=== PATIENT | female | born 1960 | race Caucasian/White ===

== ENCOUNTER 2017-03-15 14:08 | Emergency (ER) | payer OTHER ==
[2017-03-15 14:09] VITALS: BMI 32.9
[2017-03-15 14:25] VITALS: TEMP 97.6; O2SAT 100
[2017-03-15] MEDS ORDERED: Oxycodone/Acetaminophen 5/325 mg Tab PO STA (14:32)
[2017-03-15] MEDS ORDERED: Alum-Mag Hydrox-Simethicone Susp (30 mL) PO STA (14:32)
[2017-03-15] MEDS ORDERED: Lidocaine 5% Patch TD STA (14:33)
--- NOTE | 2017-03-15 14:37 | ED PDOC ---
Arrival/HPI - General Chief Complaint: Abdominal Pain Time Seen by Provider: 03/15/17 14:29 Historian: Patient - History of Present Illness Narrative History of Present Illness (Text): 03/15/17 14:34 56 y/o female, pmh including gerd/chronic lower back pain, nkda, post menopausal , c/o epigastric pain and lower back pain. Pt. stated that she has epigastric for over 1-2 years, recently had the endoscopy done and told she has gastritis with reflux esophogitis, on PPI now for the past 2 weeks and currently following up with the GI doctor. Pt. stated that she has chronic lt. lower back pain which told she has disc herniation which she is following with the neurologist, no numbness or tingling, no fever or chills, no urinary or bowel incontinence or retention, no chest pain or shortness of breath, no night sweat , no dizziness, no rash, no other medical or psychological complaints. Past Medical History - Provider Review Nursing Documentation Reviewed: Yes - Tetanus Immunization Tetanus Immunization: Unknown - Cardiac Hx Cardiac Disorders: No - Pulmonary Hx Respiratory Disorders: Yes Hx Asthma: Yes - Neurological Hx Neurological Disorder: No - HEENT Hx HEENT Disorder: No - Renal Hx Renal Disorder: No - Endocrine/Metabolic Hx Endocrine Disorders: No - Hematological/Oncological Hx Blood Disorders: No - Integumentary Hx Dermatological Disorder: No - Musculoskeletal/Rheumatological Hx Musculoskeletal Disorders: No - Gastrointestinal Hx Gastrointestinal Disorders: No - Genitourinary/Gynecological Hx Genitourinary Disorders: No - Psychiatric Hx Psychophysiologic Disorder: No Hx Substance Use: No - Surgical History Other/Comment: HX OF RIGHT CARPAL TUNNEL RELEASE, BOTH OVARY REMOVED, FIBROID REMOVED - Anesthesia Hx Anesthesia: Yes Hx Anesthesia Reactions: No Hx Malignant Hyperthermia: No - Suicidal Assessment Feels Threatened In Home Enviroment: No Family/Social History - Physician Review Nursing Documentation Reviewed: Yes Family/Social History: Unknown Family HX Smoking Status: Never Smoked Hx Alcohol Use: No Hx Substance Use: No Hx Substance Use Treatment: No Allergies/Home Meds Allergies/Adverse Reactions: Allergies No Known Allergies Allergy (Verified 07/25/14 20:30) per patient Home Medications: Home Meds Medication Instructions Recorded Confirmed Gabapentin [Neurontin] 300 mg PO HS 03/15/17 03/15/17 Pantoprazole [Protonix] 40 mg PO DAILY 03/15/17 03/15/17 Polyethylene Glycol 3350 [Glycolax] 17 gm PO DAILY 03/15/17 03/15/17 Review of Systems - Review of Systems Constitutional: absent: Fatigue, Fevers Eyes: absent: Vision Changes ENT: Sore Throat. absent: Hearing Changes Respiratory: absent: SOB, Cough Cardiovascular: absent: Chest Pain Gastrointestinal: Abdominal Pain. absent: Nausea, Vomiting Musculoskeletal: Back Pain. absent: Arthralgias, Neck Pain Skin: absent: Rash, Pruritis Neurological: absent: Headache, Dizziness Psychiatric: absent: Anxiety, Depression Physical Exam Vital Signs Reviewed: Yes Vital Signs Temp Pulse Resp BP Pulse Ox 03/15/17 16:41 65 18 138/79 100 03/15/17 15:39 63 18 142/89 100 03/15/17 14:24 97.6 F 61 16 144/94 H 100 Temperature: Afebrile Blood Pressure: Hypertensive Pulse: Regular Respiratory Rate: Normal Appearance: Positive for: Well-Appearing, Non-Toxic, Comfortable Pain Distress: Moderate Mental Status: Positive for: Alert and Oriented X 3 - Systems Exam Head: Present: Atraumatic, Normocephalic Pupils: Present: PERRL Extroacular Muscles: Present: EOMI Conjunctiva: Present: Normal Mouth: Present: Moist Mucous Membranes Neck: Present: Normal Range of Motion Respiratory/Chest: Present: Clear to Auscultation, Good Air Exchange. No: Respiratory Distress, Accessory Muscle Use Cardiovascular: Present: Regular Rate and Rhythm, Normal S1, S2. No: Murmurs Abdomen: Present: Tenderness (+epigastric tenderness, negative ge sign), Normal Bowel Sounds. No: Distention, Peritoneal Signs Back: Present: Normal Inspection, Other (LS spine: no midline tenderness or step off, no paraspinal muscle tenderness except mild spasm on the lt. lumbar paraspinal muscle, no rash, no cva tenderness, FROM without limitation, sensation intact, motor 5/5, no saddling gait. ). No: Midline Tenderness, Paraspinal Tenderness, Decubitus Ulcer Upper Extremity: Present: Normal Inspection. No: Cyanosis, Edema Lower Extremity: Present: Normal Inspection. No: Edema Neurological: Present: GCS=15, CN II-XII Intact, Speech Normal Skin: Present: Warm, Dry, Normal Color. No: Rashes Psychiatric: Present: Alert, Oriented x 3, Normal Insight, Normal Concentration Medical Decision Making ED Course and Treatment: 03/15/17 14:36 -labs -ekg/chest xray -GI cocktail/percocet/lidoderm -observe and reassess 03/15/17 17:10 -There is no emergent indication of radiology studies for the thoracic/lumbar region -EKG: Sinus Bradycardia @ 54 BPM, no ST elevation or depression, T wave in version on lead III. -Chest xray show no active disease -Labs are non-significant, negative troponin. -UA show no UTI. -I reviewed the [facility], pt. is not on any chronic narcotic pain med, will give 3 days of percocet for her for the pain since she's not a candidate for the NSAIDS with tylenol as limited relief. -Pt. request for cane, will order cane for her. -Discharge home with percocet, lidoderm patch, sucralfate, bed rest, stay hydrated, follow up with your own pmd and GI/neurologist within 2 days, return to the ER for any new or worsening signs or symptoms. - Lab Interpretations Lab Results: 03/15/17 15:30 03/15/17 15:30 Lab Results 03/15/17 15:30: Sodium 143, Potassium 4.2, Chloride 103, Carbon Dioxide 30, Anion Gap 14, BUN 8, Creatinine 0.6, Est GFR ( Amer) > 60, Est GFR (Non- Af Amer) > 60, Random Glucose 90, Calcium 10.3, Total Bilirubin 0.7, AST 21, ALT 30, Alkaline Phosphatase 85, Lactate Dehydrogenase 440, Total Creatine Kinase 43, Troponin I < 0.01, Total Protein 7.8, Albumin 4.2, Globulin 3.6, Albumin/Globulin Ratio 1.2, Lipase 78 03/15/17 15:30: WBC 4.3 L, RBC 4.83, Hgb 13.8, Hct 41.7, MCV 86.3, MCH 28.6, MCHC 33.1, RDW 13.2, Plt Count 299, MPV 9.2, Gran % 49.6 L, Lymph % (Auto) 37.3 H, [place] % (Auto) 9.3 H, Eos % (Auto) 3.3, Baso % (Auto) 0.5, Gran # 2.13, Lymph # 1.6, [place] # 0.4, Eos # 0.1, Baso # 0.02 03/15/17 14:55: Urine Color Yellow, Urine Appearance Clear, Urine pH 7.5, Ur Specific Raymond 1.015, Urine Protein Trace H, Urine Glucose (UA) Negative, Urine Ketones Negative, Urine Blood Negative, Urine Nitrate Negative, Urine Bilirubin Negative, Urine Urobilinogen 0.2, Ur Leukocyte Esterase Negative, Urine RBC 0 - 2, Urine WBC 0 - 2, Ur Epithelial Cells 0 - 2, Urine Bacteria Few I have reviewed the lab results: Yes Interpretation: No clinic. lab abnormalty - RAD Interpretation Radiology Orders: 03/15/17 14:32 CHEST PORTABLE [RAD] Stat no active disease Backend Developer: Radiologist - EKG Interpretation EKG Interpretation (Text): 03/15/17 15:01 EKG: Sinus Bradycardia @ 54 BPM, no ST elevation or depression, T wave in version on lead III. Interpreted by ED Physician: Yes Type: 12 lead EKG - Medication Orders Current Medication Orders: Discontinued Medications Al Hydrox/Mg Hydrox/Simethicone (Maalox Plus 30 Ml) 30 ml PO STAT STA Stop: 03/15/17 14:33 Last Admin: 03/15/17 15:06 Dose: 30 ml Dicyclomine HCl (Bentyl) 20 mg PO STAT STA Stop: 03/15/17 14:33 Last Admin: 03/15/17 15:06 Dose: 20 mg Lidocaine (Lidoderm) 1 ea TD STAT STA Stop: 03/15/17 14:34 Last Admin: 03/15/17 15:07 Dose: 1 ea Lidocaine HCl (Lidocaine 2% Viscous) 15 ml PO STAT STA Stop: 03/15/17 14:33 Last Admin: 03/15/17 15:07 Dose: 15 ml Oxycodone/Acetaminophen (Percocet 5/325 Mg Tab) 1 tab PO STAT STA Stop: 03/15/17 14:33 Last Admin: 03/15/17 15:06 Dose: 1 tab - PA / CUSHION WORKER / Resident Statement / has reviewed & agrees with the documentation as recorded. Disposition/Present on Arrival - Present on Arrival Any Indicators Present on Arrival: No History of DVT/PE: No History of Uncontrolled Diabetes: No Urinary Catheter: No History of Decub. Ulcer: No History Surgical Site Infection Following: None - Disposition Have Diagnosis and Disposition been Completed?: Yes Diagnosis: GERD (gastroesophageal reflux disease), Lumbar radiculopathy, chronic Disposition: HOME/ ROUTINE Disposition Time: 15:02 Patient Plan: Discharge Patient Problems: Current Active Problems Problem Status Onset GERD (gastroesophageal reflux disease) Acute Lumbar radiculopathy, chronic Acute Condition: IMPROVED Additional Instructions: Discharge home with percocet, lidoderm patch, sucralfate, bed rest, stay hydrated, follow up with your own pmd and GI/neurologist within 2 days, return to the ER for any new or worsening signs or symptoms. Prescriptions: Lidocaine 5% [Lidoderm] 1 patch TP DAILY PRN #14 patch PRN Reason: Other oxyCODONE/Acetaminophen [Percocet 5/325 mg Tab] 1 tab PO QID PRN #12 tab PRN Reason: Other Sucralfate [Carafate Oral Susp] 10 ml PO QID PRN #300 ml PRN Reason: Other Referrals: PCP,NO [Primary Care Provider] - Follow up with primary [facility] [place]] - Follow up with primary Francesco Feldman MD [Staff Provider] - Follow up with primary Forms: [employer] (Uzbek), WORK NOTE
[2017-03-15 15:09] LABS: PH,URINE 7.5 (4.7-8.0); URINE BILIRUBIN NEGATIVE (NEGATIVE); URINE BLOOD NEGATIVE (NEGATIVE); URINE GLUCOSE (UA) NEGATIVE (NEGATIVE); URINE LEUKOCYTE ESTERASE NEGATIVE Leu/uL (NEGATIVE); URINE NITRATE NEGATIVE (NEGATIVE); URINE PROTEIN TRACE mg/dL (<30 mg/dL); URINE UROBILINOGEN 0.2 E.U./dL (<1 E.U./dL)
[2017-03-15 15:10] LABS: URINE APPEARANCE CLEAR (CLEAR); URINE COLOR YELLOW (YELLOW)
[2017-03-15 15:24] LABS: URINE BACTERIA FEW (NEG); URINE EPITHELIAL CELLS 0 - 2 /hpf (0-5); URINE RBC 0 - 2 /hpf (0-2); URINE WBC 0 - 2 /hpf (0-6)
[2017-03-15 15:38] LABS: BASO # 0.02 K/mm3 (0.0-2.0); BASO % 0.5 % (0.0-3.0); EOS # 0.1 (0.0-0.7); EOS % 3.3 % (1.5-5.0); GRAN # 2.13 (1.4-6.5); GRAN % 49.6 % (50.0-68.0); HEMOGLOBIN 13.8 gm/dL (12.0-16.0); LYMPH # 1.6 (1.2-3.4); LYMPH % 37.3 % (22.0-35.0); MEAN CELL VOLUME 86.3 fL (80.0-105.0); MEAN CORPUSCULAR HEMOGLOBIN 28.6 pg (25.0-35.0); MEAN CORPUSCULAR HGB CONC 33.1 g/dl (31.0-37.0); MEAN PLATELET VOLUME 9.2 fl (7.0-11.0); MONO # 0.4 (0.1-0.6); MONO % 9.3 % (1.0-6.0); PLATELET COUNT 299 10^3/uL (120.0-450.0); RBC 4.83 10^6/uL (3.5-6.1); RED CELL DISTRIBUTION WIDTH 13.2 % (11.5-14.5); WHITE BLOOD COUNT 4.3 10^3/ul (4.5-11.0)
[2017-03-15 15:39] VITALS: RESP 18
[2017-03-15 15:58] LABS: ALB/GLOB RATIO 1.2 (1.1-1.8); ALBUMIN 4.2 g/dL (3.0-4.8); ALT/SGPT 30 U/L (7-56); AST/SGOT 21 U/L (15-39); BLOOD UREA NITROGEN 8 mg/dL (7-21); CALCIUM 10.3 mg/dL (8.4-10.5); GFR AFRICAN-AMERICAN > 60; GFR NON-AFRICAN AMERICAN > 60; LIPASE 78 U/L (23-300)
[2017-03-15 16:12] LABS: TROPONIN I < 0.01 ng/mL
[2017-03-15 16:42] VITALS: BP 138/79; PULSE 65
--- NOTE | 2017-03-15 16:45 | RAD ---
HISTORY: medical clearance COMPARISON: 12/12/2012 FINDINGS: LUNGS: No active pulmonary disease. PLEURA: No significant pleural effusion identified, no pneumothorax apparent. CARDIOVASCULAR: Normal. OSSEOUS STRUCTURES: No significant abnormalities. VISUALIZED UPPER ABDOMEN: Normal. OTHER FINDINGS: None. IMPRESSION: No active disease.
--- NOTE | 2017-03-16 08:58 | CARD ---
APPROVED REPORT EKG Measurement Heart [id number] <Conclusion> Sinus bradycardia Incomplete right bundle branch block Minimal voltage criteria for LVH, may be normal variant Nonspecific T wave abnormality T wave flattening V 4 - 6, new since ECG 12/12/12
== END 2017-03-15 17:37 | disposition home or self-care (01) ==
LOC: ED 14:08
DX: M54.16 Radiculopathy, lumbar region (principal); K21.9 Gastro-esophageal reflux disease without esophagitis

== ENCOUNTER 2017-10-01 03:21 | Emergency (ER) | payer OTHER ==
[2017-10-01 03:25] VITALS: BMI 30.9
--- NOTE | 2017-10-01 03:41 | ED PDOC ---
Arrival/HPI - General Chief Complaint: Chest Pain Time Seen by Provider: 10/01/17 03:35 Historian: Patient - History of Present Illness Narrative History of Present Illness (Text): 10/01/17 03:41 Damaris Serra is a 56 year old female, whose past medical history includes asthma and chronic back pain on Gabapentin, who presents to the Emergency department complaining of chest discomfort, occasional palpitations, and occasional shortness of breath tonight. Patient also reports left-sided facial paresthesias 2 days prior. Patient denies any headache, dizziness, weakness, vision changes, abdominal pain, fever, chills, neck pain, or any other complaints. Symptom Onset: Gradual Symptom Course: Unchanged Activities at Onset: Light Context: Home Past Medical History - Provider Review Nursing Documentation Reviewed: Yes - Tetanus Immunization Tetanus Immunization: Unknown - Cardiac Hx Cardiac Disorders: Yes Hx Hypertension: Yes - Pulmonary Hx Respiratory Disorders: Yes Hx Asthma: Yes - Neurological Hx Neurological Disorder: No - HEENT Hx HEENT Disorder: No - Renal Hx Renal Disorder: No - Endocrine/Metabolic Hx Endocrine Disorders: No - Hematological/Oncological Hx Blood Disorders: No - Integumentary Hx Dermatological Disorder: No - Musculoskeletal/Rheumatological Hx Musculoskeletal Disorders: Yes Hx Arthritis: Yes Hx Back Pain: Yes - Gastrointestinal Hx Gastrointestinal Disorders: Yes Hx Gastritis: Yes - Genitourinary/Gynecological Hx Genitourinary Disorders: No - Psychiatric Hx Psychophysiologic Disorder: No Hx Substance Use: No - Surgical History Hx Orthopedic Surgery: Yes Other/Comment: OVARIES/FIBROIDS - Anesthesia Hx Anesthesia: Yes Hx Anesthesia Reactions: No Hx Malignant Hyperthermia: No - Suicidal Assessment Feels Threatened In Home Enviroment: No Family/Social History - Physician Review Nursing Documentation Reviewed: Yes Family/Social History: Unknown Family HX Smoking Status: Never Smoked Hx Alcohol Use: No Hx Substance Use: No Hx Substance Use Treatment: No Allergies/Home Meds Allergies/Adverse Reactions: Allergies No Known Allergies Allergy (Verified 10/01/17 03:24) per patient Home Medications: Home Meds Medication Instructions Recorded Confirmed Gabapentin [Neurontin] 300 mg PO HS 03/15/17 10/01/17 Pantoprazole [Protonix] 40 mg PO DAILY 03/15/17 10/01/17 Polyethylene Glycol 3350 [Glycolax] 17 gm PO DAILY 03/15/17 10/01/17 Enalapril Maleate [Vasotec] 10 mg PO DAILY 06/08/17 10/01/17 Lubiprostone [Amitiza] 24 mcg PO DAILY 06/08/17 10/01/17 Review of Systems - Physician Review All systems were reviewed & negative as marked: Yes - Review of Systems Constitutional: Normal Eyes: Normal ENT: Normal Respiratory: SOB Cardiovascular: Chest Pain, Palpitations Gastrointestinal: Normal. absent: Abdominal Pain, Diarrhea, Nausea, Vomiting Genitourinary Female: Normal. absent: Dysuria, Frequency, Hematuria, Urine Output Changes Musculoskeletal: Normal. absent: Back Pain, Neck Pain Skin: Normal. absent: Rash Neurological: Other (+left-sided facial paresthesias). absent: Headache, Dizziness, Focal Weakness Endocrine: Normal Hemo/Lymphatic: Normal Psychiatric: Normal Physical Exam Vital Signs Reviewed: Yes Vital Signs Temp Pulse Resp BP Pulse Ox 10/01/17 05:10 98.2 F 86 17 143/96 H 98 10/01/17 04:36 82 17 143/96 H 98 Temperature: Afebrile Blood Pressure: Normal Pulse: Regular Respiratory Rate: Normal Appearance: Positive for: Well-Appearing, Non-Toxic, Comfortable Pain Distress: None Mental Status: Positive for: Alert and Oriented X 3 - Systems Exam Head: Present: Atraumatic, Normocephalic Pupils: Present: PERRL Extroacular Muscles: Present: EOMI Conjunctiva: Present: Normal Mouth: Present: Moist Mucous Membranes Neck: Present: Normal Range of Motion Respiratory/Chest: Present: Clear to Auscultation, Good Air Exchange. No: Respiratory Distress, Accessory Muscle Use Cardiovascular: Present: Regular Rate and Rhythm, Normal S1, S2. No: Murmurs Abdomen: Present: Normal Bowel Sounds. No: Tenderness, Distention, Peritoneal Signs Back: Present: Normal Inspection Upper Extremity: Present: Normal Inspection. No: Cyanosis, Edema Lower Extremity: Present: Normal Inspection. No: Edema Neurological: Present: GCS=15, CN II-XII Intact, Speech Normal Skin: Present: Warm, Dry, Normal Color. No: Rashes Psychiatric: Present: Alert, Oriented x 3, Normal Insight, Normal Concentration Medical Decision Making ED Course and Treatment: 10/01/17 03:41 Impression: 56 year old female complaining of chest pain and left facial paresthesias. Plan: -- CT Head w/o contrast -- EKG -- CXR -- Labs, cardiac enzymes -- Reassess and disposition Progress Notes: Reviewed EKG, NSR at 91 bpm. RBBB. LVH. Non-specific ST/T wave changes. 10/01/17 04:30 CXR reviewed, shows no acute processes. 10/01/17 04:46 CT Head shows: Brain: Unremarkable. No hemorrhage. No significant white matter disease. No edema. Ventricles: Unremarkable. No ventriculomegaly. Bones/joints: Unremarkable. No acute fracture. Soft tissues: Unremarkable. Sinuses: Minimal sinus disease. Mastoid air cells: Unremarkable. No mastoid effusion. Orbits: The globe and lens are intact. IMPRESSION: No evidence of an acute intracranial hemorrhage, midline shift or mass effect is identified.Changes of an acute infarct may not be visible on CT for up to 24 to 48 hours. If this is of clinical concern, a follow up examination and/or MRI may be of benefit. 10/01/17 05:08 Discussed results and plan with pt. Pt was offered hospital admission for further observation for symptoms. Pt refusing to stay in the hospital, states she wants to go home. Pt will sign out against medical advice. The patient is choosing to leave against medical advice. I have personally explained to the patient that choosing to do so may result in permanent bodily harm or . I have discussed at great length that without further evaluation and monitoring there may be unforeseen circumstances and/or deterioration causing permanent bodily harm or as a result of their choice. The patient is alert, oriented, and shows the mental capacity to make clear decisions regarding the patients health care at this time. The patient continues to wish to leave against medical advice. In light of the patients decision to leave against medical advice, patient made aware of the importance to following up as instructed. The patient has been advised that they should return to the emergency room immediately if they change their mind at any time, or if their condition begins to change or worsen in any way.. - Lab Interpretations Lab Results: 10/01/17 03:30 10/01/17 03:30 Lab Results 10/01/17 03:30: WBC 6.1 D, RBC 4.53, Hgb 13.0, Hct 39.5, MCV 87.2, MCH 28.7, MCHC 32.9, RDW 13.3, Plt Count 319, MPV 9.9 10/01/17 03:30: Sodium 145, Potassium 3.8, Chloride 106, Carbon Dioxide 30, Anion Gap 13, BUN 14, Creatinine 0.7, Est GFR ( Amer) > 60, Est GFR (Non- Af Amer) > 60, Random Glucose 110, Calcium 10.8 H, Total Bilirubin 0.4, AST 30, ALT 44, Alkaline Phosphatase 83, Lactate Dehydrogenase 495, Total Creatine Kinase 82, Troponin I < 0.01, Total Protein 7.3, Albumin 4.1, Globulin 3.1, Albumin/Globulin Ratio 1.3 10/01/17 03:30: PT 11.0, INR 0.97, APTT 28.4 I have reviewed the lab results: Yes - RAD Interpretation Radiology Orders: 10/01/17 03:43 CHEST PORTABLE [RAD] Stat 10/01/17 03:44 HEAD W/O CONTRAST [CT] Stat Bridal Consultant: ED Physician, Radiologist - EKG Interpretation Interpreted by ED Physician: Yes Type: 12 lead EKG - Medication Orders Current Medication Orders: Discontinued Medications Aspirin (Aspirin) 325 mg PO ONCE STA Stop: 10/01/17 04:50 Last Admin: 10/01/17 05:00 Dose: - Scribe Statement The provider has reviewed the documentation as recorded by the Scribrommel Waller All medical record entries made by the Ritaibrommel were at my direction and personally dictated by me. I have reviewed the chart and agree that the record accurately reflects my personal performance of the history, physical exam, medical decision making, and the department course for this patient. I have also personally directed, reviewed, and agree with the discharge instructions and disposition. Disposition/Present on Arrival - Present on Arrival Any Indicators Present on Arrival: No History of DVT/PE: No History of Uncontrolled Diabetes: No Urinary Catheter: No History of Decub. Ulcer: No History Surgical Site Infection Following: None - Disposition Have Diagnosis and Disposition been Completed?: Yes Diagnosis: Chest pain Disposition: AGAINST MEDICAL ADVICE Disposition Time: 05:15 Condition: STABLE Discharge Instructions (ExitCare): Chest Pain (ED) Forms: [email or web address] (Slovak)
[2017-10-01 03:59] LABS: MEAN CELL VOLUME 87.2 fl (80.0-105.0); MEAN CORPUSCULAR HEMOGLOBIN 28.7 pg (25.0-35.0); MEAN CORPUSCULAR HGB CONC 32.9 g/dl (31.0-37.0); MEAN PLATELET VOLUME 9.9 fl (7.0-11.0); RBC 4.53 10^6/uL (3.5-6.1); RED CELL DISTRIBUTION WIDTH 13.3 % (11.5-14.5); WHITE BLOOD COUNT 6.1 10^3/ul (4.5-11.0)
[2017-10-01 04:11] LABS: INR 0.97 (0.93-1.08); PARTIAL THROMBOPLASTIN TIME 28.4 Seconds (25.1-36.5)
[2017-10-01 04:14] LABS: ALB/GLOB RATIO 1.3 (1.1-1.8); ALBUMIN 4.1 g/dL (3.0-4.8); ALT/SGPT 44 U/L (7-56); AST/SGOT 30 U/L (14-36); BLOOD UREA NITROGEN 14 mg/dL (7-21); CALCIUM 10.8 mg/dL (8.4-10.5); GFR AFRICAN-AMERICAN > 60; GFR NON-AFRICAN AMERICAN > 60
[2017-10-01 04:26] LABS: TROPONIN I < 0.01 ng/mL
[2017-10-01 04:36] VITALS: BP 143/96; RESP 17; O2SAT 98
--- NOTE | 2017-10-01 04:45 | CT ---
EXAM: CT Head Without Intravenous Contrast CLINICAL HISTORY: 56 years old, female; Signs and symptoms; Weakness, facial; Additional info: Facial paresthesias TECHNIQUE: Axial computed tomography images of the head/brain without intravenous contrast. All CT scans at this facility use one or more dose reduction techniques, viz.: automated exposure control; ma/kV adjustment per patient size (including targeted exams where dose is matched to indication; i.e. head); or iterative reconstruction technique. 328 images are submitted. Coronal and sagittal reformatted images were created and reviewed. Axial reformatted images were created and reviewed. COMPARISON: No relevant prior studies available. FINDINGS: Brain: Unremarkable. No hemorrhage. No significant white matter disease. No edema. Ventricles: Unremarkable. No ventriculomegaly. Bones/joints: Unremarkable. No acute fracture. Soft tissues: Unremarkable. Sinuses: Minimal sinus disease. Mastoid air cells: Unremarkable. No mastoid effusion. Orbits: The globe and lens are intact. IMPRESSION: No evidence of an acute intracranial hemorrhage, midline shift or mass effect is identified.Changes of an acute infarct may not be visible on CT for up to 24 to 48 hours. If this is of clinical concern, a follow up examination and/or MRI may be of benefit.
[2017-10-01 05:12] VITALS: PULSE 86; TEMP 98.2
--- NOTE | 2017-10-01 09:47 | RAD ---
HISTORY: chest pain COMPARISON: 03/15/2017 FINDINGS: LUNGS: No active pulmonary disease. PLEURA: No significant pleural effusion identified, no pneumothorax apparent. CARDIOVASCULAR: Normal. OSSEOUS STRUCTURES: No significant abnormalities. VISUALIZED UPPER ABDOMEN: Normal. OTHER FINDINGS: None. IMPRESSION: No active disease.
--- NOTE | 2017-10-01 21:35 | CARD ---
APPROVED REPORT EKG Measurement Heart [id number] 196P38 [id number] <Conclusion> Normal sinus rhythm Possible Left atrial enlargement Right bundle branch block Left ventricular hypertrophy Abnormal ECG
== END 2017-10-01 05:10 | disposition left against medical advice (07) ==
LOC: ED 03:21
DX: R07.9 Chest pain, unspecified (principal); I10 Essential (primary) hypertension

== ENCOUNTER 2017-12-10 11:44 | Observation (INO) | payer OTHER ==
[2017-12-10 13:43] LABS: BASO # 0.03 K/mm3 (0.0-2.0); BASO % 0.7 % (0.0-3.0); EOS # 0.1 (0.0-0.7); EOS % 2.8 % (1.5-5.0); GRAN # 1.7 (1.4-6.5); GRAN % 40.1 % (50.0-68.0); HEMOGLOBIN 13.7 g/dL (12.0-16.0); LYMPH # 2.1 (1.2-3.4); LYMPH % 48.6 % (22.0-35.0); MEAN CELL VOLUME 85.6 fl (80.0-105.0); MEAN CORPUSCULAR HEMOGLOBIN 28.5 pg (25.0-35.0); MEAN CORPUSCULAR HGB CONC 33.3 g/dl (31.0-37.0); MEAN PLATELET VOLUME 9.6 fl (7.0-11.0); MONO # 0.3 (0.1-0.6); MONO % 7.8 % (1.0-6.0); RBC 4.8 10^6/uL (3.5-6.1); RED CELL DISTRIBUTION WIDTH 12.9 % (11.5-14.5); WHITE BLOOD COUNT 4.2 10^3/ul (4.5-11.0)
--- NOTE | 2017-12-10 13:46 | ED PDOC ---
Arrival/HPI - General Chief Complaint: Anxiety Time Seen by Provider: 12/10/17 12:33 Historian: Patient - History of Present Illness Narrative History of Present Illness (Text): 12/10/17 13:43 56-year-old female presents today complaining of anxiety chest pain status post incident. Patient states that she got stuck in an elevator for 30 minutes. Patient states she became very tearful became very anxious. Patient states she developed chest pain and palpitations. Patient states she felt she couldn't catch her breath and she felt like she was having numbness around the mouth. Patient states she is feeling better but still is having pain in the chest. She denies fevers or chills. No urinary symptoms no abdominal pain. No nausea or vomiting. No other complaints patient denies suicidal or homicidal ideations. Time/Duration: 1/2 hour Symptom Onset: Sudden Past Medical History - Provider Review Nursing Documentation Reviewed: Yes - Travel History Have you recently traveled outside [place] w/in the past 3 mons?: No - Infectious Disease Hx of Infectious Diseases: None - Tetanus Immunization Tetanus Immunization: Unknown - Reproductive Menopause: Yes - Cardiac Hx Cardiac Disorders: Yes Hx Hypertension: Yes - Pulmonary Hx Respiratory Disorders: Yes Hx Asthma: Yes - Neurological Hx Neurological Disorder: No - HEENT Hx HEENT Disorder: No - Renal Hx Renal Disorder: No - Endocrine/Metabolic Hx Endocrine Disorders: No - Hematological/Oncological Hx Blood Disorders: No - Integumentary Hx Dermatological Disorder: No - Musculoskeletal/Rheumatological Hx Musculoskeletal Disorders: Yes Hx Arthritis: Yes Hx Back Pain: Yes - Gastrointestinal Hx Gastrointestinal Disorders: Yes Hx Gastritis: Yes - Genitourinary/Gynecological Hx Genitourinary Disorders: No - Psychiatric Hx Psychophysiologic Disorder: No Hx Substance Use: No - Surgical History Hx Orthopedic Surgery: Yes (Right Ankle) Other/Comment: OVARIES/FIBROIDS - Anesthesia Hx Anesthesia: Yes Hx Anesthesia Reactions: No Hx Malignant Hyperthermia: No - Suicidal Assessment Feels Threatened In Home Enviroment: No Family/Social History - Physician Review Nursing Documentation Reviewed: Yes Family/Social History: Unknown Family HX Smoking Status: Never Smoked Hx Alcohol Use: No Hx Substance Use: No Hx Substance Use Treatment: No Allergies/Home Meds Allergies/Adverse Reactions: Allergies No Known Allergies Allergy (Verified 10/01/17 03:24) per patient Home Medications: Home Meds Medication Instructions Recorded Confirmed Gabapentin [Neurontin] 300 mg PO HS 08/03/17 04/30/18 Pantoprazole [Protonix] 40 mg PO DAILY 03/15/17 12/10/17 Review of Systems - Review of Systems Constitutional: absent: Fatigue, Fevers ENT: absent: Sore Throat, Sinus Congestion Respiratory: SOB. absent: Cough Cardiovascular: Chest Pain, Palpitations Gastrointestinal: absent: Abdominal Pain, Nausea, Vomiting Genitourinary Female: absent: Dysuria Musculoskeletal: absent: Arthralgias, Back Pain, Neck Pain Skin: absent: Rash, Pruritis Neurological: Dizziness. absent: Headache Psychiatric: Anxiety. absent: Depression, Suicidal Ideation Physical Exam Vital Signs Reviewed: Yes Vital Signs Temp Pulse Resp BP Pulse Ox 12/10/17 16:14 98.0 F 68 18 120/75 100 12/10/17 13:56 64 18 148/79 100 12/10/17 12:02 98.4 F 60 18 158/84 H 100 Temperature: Afebrile Blood Pressure: Hypertensive Pulse: Regular Respiratory Rate: Normal Appearance: Positive for: Well-Appearing, Non-Toxic, Comfortable Pain Distress: None Mental Status: Positive for: Alert and Oriented X 3 - Systems Exam Head: Present: Atraumatic Pupils: Present: PERRL Extroacular Muscles: Present: EOMI Conjunctiva: Present: Normal Mouth: Present: Moist Mucous Membranes Nose (External): Present: Atraumatic Neck: Present: Normal Range of Motion Respiratory/Chest: Present: Clear to Auscultation, Good Air Exchange. No: Respiratory Distress, Accessory Muscle Use Cardiovascular: Present: Regular Rate and Rhythm, Normal S1, S2. No: Murmurs Abdomen: No: Tenderness, Distention, Peritoneal Signs, Rebound, Guarding Back: Present: Normal Inspection Upper Extremity: Present: Normal ROM Lower Extremity: Present: Normal ROM Neurological: Present: GCS=15, Speech Normal, Motor Func Grossly Intact, Normal Sensory Function Skin: Present: Warm, Dry, Normal Color. No: Rashes Psychiatric: Present: Alert, Oriented x 3 Medical Decision Making ED Course and Treatment: 12/10/17 13:46 56-year-old female presents with chest pain shortness of breath and anxiety status post being trapped in an elevator for 30 minutes ativan given. CBC wnl CMP wnl Troponin wnl EKG sinus bradycardia at 54 bpm incomplete right bundle branch block no ST elevations QTC 419 Chest x-ray: No infiltrate or effusion head ct; FINDINGS: HEMORRHAGE: No intracranial hemorrhage. BRAIN: Ingram-white matter differentiation is preserved. There is no mass, mass effect or abnormal extra-axial fluid collection. VENTRICLES: The ventricles are normal in size, shape and configuration. CALVARIUM: There is no calvarial fracture or extracranial soft tissue swelling. PARANASAL SINUSES: Predominantly clear. MASTOID AIR CELLS: Bilateral mastoid air cells are underdeveloped. OTHER FINDINGS: None. IMPRESSION: No acute intracranial abnormality Patient reassessment, patient nontoxic well-appearing no distress with stable vital signs. pt c/o nausea. no vomiting. zofran added. asa given. case discussed with dr. palomares; accepts observational status admission to tele for cp r/o acs. impression; chest pain admit observational status to tele. - Lab Interpretations Lab Results: 12/10/17 13:30 12/10/17 13:30 Lab Results 12/10/17 13:30: WBC 4.2 L D, RBC 4.80, Hgb 13.7, Hct 41.1, MCV 85.6, MCH 28.5, MCHC 33.3, RDW 12.9, Plt Count 289, MPV 9.6, Gran % 40.1 L, Lymph % (Auto) 48.6 H, Saline % (Auto) 7.8 H, Eos % (Auto) 2.8, Baso % (Auto) 0.7, Gran # 1.70, Lymph # (Auto) 2.1, Saline # (Auto) 0.3, Eos # (Auto) 0.1, Baso # (Auto) 0.03 12/10/17 13:30: Sodium 143, Potassium 3.7, Chloride 106, Carbon Dioxide 28, Anion Gap 13, BUN 11, Creatinine 0.6 L, Est GFR ( Amer) > 60, Est GFR ( Non-Af Amer) > 60, Random Glucose 94, Calcium 10.1, Total Bilirubin 0.4, AST 22 , ALT 38, Alkaline Phosphatase 85, Lactate Dehydrogenase 449, Total Creatine Kinase 40, Troponin I < 0.01, Total Protein 7.3, Albumin 4.2, Globulin 3.0, Albumin/Globulin Ratio 1.4 - RAD Interpretation Radiology Orders: 12/10/17 13:00 CHEST PORTABLE [RAD] Stat 12/10/17 16:13 HEAD W/O CONTRAST [CT] Stat - Medication Orders Current Medication Orders: Discontinued Medications Aspirin (Aspirin) 325 mg PO STAT STA Stop: 12/10/17 18:40 Lorazepam (Ativan) 0.5 mg PO ONCE ONE PRN Reason: Protocol Stop: 12/10/17 13:48 Last Admin: 12/10/17 13:53 Dose: 0.5 mg Ondansetron HCl (Zofran Inj) 4 mg IVP STAT STA Stop: 12/10/17 15:16 Last Admin: 12/10/17 15:27 Dose: 4 mg IVP Administration Document 12/10/17 15:27 OCS (Rec: 12/10/17 15:27 OCS [id number]) Charges for Administration # of IVP Administrations 1 Disposition/Present on Arrival - Present on Arrival Any Indicators Present on Arrival: No History of DVT/PE: No History of Uncontrolled Diabetes: No Urinary Catheter: No History of Decub. Ulcer: No History Surgical Site Infection Following: None - Disposition Have Diagnosis and Disposition been Completed?: Yes Diagnosis: Chest pain Disposition: HOSPITALIZED Disposition Time: 19:48 Patient Plan: Observation Condition: FAIR Discharge Instructions (ExitCare): Chest Pain (ED) Referrals: Attila Gorman MD [Primary Care Provider] - Follow up with primary Forms: [employer] (Chinese)
--- NOTE | 2017-12-10 13:48 | RAD ---
HISTORY: chest pain/anxiety COMPARISON: 10/01/2017 FINDINGS: LUNGS: No active pulmonary disease. PLEURA: No significant pleural effusion identified, no pneumothorax apparent. CARDIOVASCULAR: Normal. OSSEOUS STRUCTURES: No significant abnormalities. VISUALIZED UPPER ABDOMEN: Normal. OTHER FINDINGS: None. IMPRESSION: No active disease.
[2017-12-10 14:08] LABS: ALB/GLOB RATIO 1.4 (1.1-1.8); ALBUMIN 4.2 g/dL (3.0-4.8); ALT/SGPT 38 U/L (7-56); AST/SGOT 22 U/L (14-36); BLOOD UREA NITROGEN 11 mg/dL (7-21); CALCIUM 10.1 mg/dL (8.4-10.5); GFR AFRICAN-AMERICAN > 60; GFR NON-AFRICAN AMERICAN > 60
[2017-12-10 14:09] LABS: TROPONIN I < 0.01 ng/mL
--- NOTE | 2017-12-10 18:05 | CT ---
PROCEDURE: CT HEAD WITHOUT CONTRAST. HISTORY: headache s/p fall/syncope COMPARISON: 10/01/2017. TECHNIQUE: Axial computed tomography images were obtained through the head/brain without intravenous contrast. Radiation dose: Total exam DLP = 1082.59 mGy-cm. This CT exam was performed using one or more of the following dose reduction techniques: Automated exposure control, adjustment of the mA and/or kV according to patient size, and/or use of iterative reconstruction technique. FINDINGS: HEMORRHAGE: No intracranial hemorrhage. BRAIN: Ingram-white matter differentiation is preserved. There is no mass, mass effect or abnormal extra-axial fluid collection. VENTRICLES: The ventricles are normal in size, shape and configuration. CALVARIUM: There is no calvarial fracture or extracranial soft tissue swelling. PARANASAL SINUSES: Predominantly clear. MASTOID AIR CELLS: Bilateral mastoid air cells are underdeveloped. OTHER FINDINGS: None. IMPRESSION: No acute intracranial abnormality.
--- NOTE | 2017-12-10 20:13 | CARD ---
APPROVED REPORT EKG Measurement Heart [id number] <Conclusion> Sinus bradycardia Incomplete right bundle branch block Nonspecific T wave abnormality Abnormal ECG
--- NOTE | 2017-12-10 20:21 | CP.PCM.HP ---
<Kristen Stahl - Last Filed: 12/10/17 22:21> History of Present Illness - History of Present Illness History of Present Illness: This patient is a 56 year old female with a PMHx of GERD and lumbar radiculopathy who presents after syncopal episode after being stuck in the elevator. Patient states she was stuck in the elevator for about 5 minutes. During that time she began feeling short of breath, palpitations, and chest pain. She then passed out following those symptoms. She denies hitting her head , biting her tongue, or any urinary or bowel incontinence. At this time she still complains of dizziness and mild chest pain. She also complains of neck pain, right ankle pain, and back pain. She hasn't tried any modalities to treat her symptoms. During the time in the elevator she stated that she felt she was going to because she felt claustrophobic. Patient denies any fevers , chills, current SOB, abdominal pain, Nausea, vomiting, diarrhea, or any urinary symptoms. ROS: As stated above PMHx: GERD, Lumbar Radiculopathy PSHx: Right ankle Surgery Allergies: NKDA SocialHx: Denies Toboacco, alcohol, or illicit drug use FamHx: Denies Meds: Reviewed Present on Admission - Present on Admission Any Indicators Present on Admission: No Review of Systems - Review of Systems All systems: reviewed and no additional remarkable complaints except (As per HPI ) Review of Systems: As per HPI Past Patient History - Infectious Disease Hx of Infectious Diseases: None - Tetanus Immunizations Tetanus Immunization: Unknown - Past Medical History & Family History Past Medical History?: Yes - Past Social History Smoking Status: Never Smoked - CARDIAC Hx Cardiac Disorders: Yes Hx Hypertension: Yes - PULMONARY Hx Respiratory Disorders: Yes Hx Asthma: Yes - NEUROLOGICAL Hx Neurological Disorder: No - HEENT Hx HEENT Problems: No - RENAL Hx Chronic Kidney Disease: No - ENDOCRINE/METABOLIC Hx Endocrine Disorders: No - HEMATOLOGICAL/ONCOLOGICAL Hx Blood Disorders: No - INTEGUMENTARY Hx Dermatological Problems: No - MUSCULOSKELETAL/RHEUMATOLOGICAL Hx Musculoskeletal Disorders: Yes Hx Arthritis: Yes Hx Back Pain: Yes - GASTROINTESTINAL Hx Gastrointestinal Disorders: Yes Hx Gastritis: Yes - GENITOURINARY/GYNECOLOGICAL Hx Genitourinary Disorders: No - PSYCHIATRIC Hx Psychophysiologic Disorder: No Hx Substance Use: No - SURGICAL HISTORY Hx Orthopedic Surgery: Yes (Right Ankle) Other/Comment: OVARIES/FIBROIDS - ANESTHESIA Hx Anesthesia: Yes Hx Anesthesia Reactions: No Hx Malignant Hyperthermia: No Meds Allergies/Adverse Reactions: Allergies Allergy/AdvReac Type Severity Reaction Status Date / Time No Known Allergies Allergy Verified 10/01/17 03:24 Physical Exam - Constitutional Appears: Well, Non-toxic - Head Exam Head Exam: ATRAUMATIC, NORMAL INSPECTION, NORMOCEPHALIC - Eye Exam Eye Exam: EOMI, Normal appearance - ENT Exam ENT Exam: Mucous Membranes Moist - Neck Exam Neck exam: Negative for: Lymphadenopathy - Respiratory Exam Respiratory Exam: Clear to Auscultation Bilateral, NORMAL BREATHING PATTERN - Cardiovascular Exam Cardiovascular Exam: RRR, +S1, +S2 - GI/Abdominal Exam GI & Abdominal Exam: Normal Bowel Sounds, Soft. absent: Tenderness - Extremities Exam Additional comments: Anterior Right ankle tender to palpation - Back Exam Back exam: FULL ROM, NORMAL INSPECTION, paraspinal tenderness (Thoracic/Cervical ). absent: vertebral tenderness - Neurological Exam Neurological exam: Alert, Oriented x3 Additional comments: No Motor or Sensory Deficit - Psychiatric Exam Psychiatric exam: Anxious, Normal Affect - Skin Skin Exam: Dry, Intact, Normal Color, Warm Results - Vital Signs Recent Vital Signs: Last Vital Signs Temp 98.0 F 12/10/17 16:14 Pulse 68 12/10/17 16:14 Resp 18 12/10/17 16:14 BP 120/75 12/10/17 16:14 Pulse Ox 100 12/10/17 16:14 - Labs Result Diagrams: 12/10/17 13:30 12/10/17 13:30 Assessment & Plan - Assessment and Plan (Free Text) Assessment: 56 year old female with a PMHx of GERD and lumbar radiculopathy who presents after syncopal episode after being stuck in the elevator. Admitted for evaluation and treatment of chest pain r/o ACS and Syncopy. Plan: Chest Pain R/O ACS Cardiology Consult Serial EKG's Serial Troponins Ibuprofen PRN Syncopy Likely VasoVagal CT scan Negative for intracranial abnormalities Neurology Consult Q4H NeuroCheck. Cervical/Back Pain CT cervical,thoracic, lumbar Spine Right Ankle Pain B/L ankle X-ray Hx of Lumbar Radiculopathy Home Neurontin 300 HS Proph Protonix/SCD's Patient seen and discussed with Attending (Dr. Bae) Kristen Stahl, PGY-1 <Gabrielle Bae - Last Filed: 12/11/17 06:38> Results - Vital Signs Recent Vital Signs: Last Vital Signs Temp 98.6 F 12/11/17 06:00 Pulse 74 12/11/17 06:00 Resp 18 12/11/17 06:00 BP 115/74 12/11/17 06:00 Pulse Ox 96 12/11/17 06:00 - Labs Result Diagrams: 12/10/17 13:30 12/10/17 13:30 Labs: Laboratory Results - last 24 hr 12/10/17 22:16 Troponin I < 0.01 Attending/Attestation - Attestation I have personally seen and examined this patient.: Yes I have fully participated in the care of the patient.: Yes I have reviewed all pertinent clinical information: Yes Notes (Text): 12/11/17 06:35 Patient was seen when she was in the ER in PES room. Medical record was reviewed. Agree with history, physical examination, assessment and plan.
[2017-12-11 00:34] VITALS: BMI 32.1
--- NOTE | 2017-12-11 08:44 | CT ---
PROCEDURE: CT Lumbar Spine without contrast HISTORY: Lower Back Pain COMPARISON: None. TECHNIQUE: Axial computed tomography images were obtained of the lumbar spine without the use of intravenous contrast. Coronal and sagittal reformatted images were created and reviewed. Radiation dose: Total exam DLP = 894 mGy-cm. This CT exam was performed using one or more of the following dose reduction techniques: Automated exposure control, adjustment of the mA and/or kV according to patient size, and/or use of iterative reconstruction technique. FINDINGS: VERTEBRAE: Unremarkable. No fracture. Normal alignment. DISCS/SPINAL CANAL/NEURAL FORAMINA: L1-2: Unremarkable. L2-3: Unremarkable. L3-4: There is a moderate disc bulge. Moderate facet arthropathy. Moderate to severe central stenosis L4-5: Disc bulge and facet arthropathy. Ligamentum flavum hypertrophy. Severe central stenosis L5-S1: Unremarkable. PARASPINAL SOFT TISSUES: Unremarkable. OTHER FINDINGS: None. IMPRESSION: Spinal stenosis at L3-4 and L4-5. See comments
--- NOTE | 2017-12-11 08:49 | CT ---
PROCEDURE: CT Thoracic Spine without contrast HISTORY: Upper Back Pain COMPARISON: None. TECHNIQUE: Axial computed tomography images were obtained of the thoracic spine without intravenous contrast. Coronal and sagittal reformatted images were created and reviewed. Radiation dose: Total exam DLP = 609 mGy-cm. This CT exam was performed using one or more of the following dose reduction techniques: Automated exposure control, adjustment of the mA and/or kV according to patient size, and/or use of iterative reconstruction technique. FINDINGS: VERTEBRAE: Unremarkable. No fracture. Normal alignment. DISCS/SPINAL CANAL/NEURAL FORAMINA: There is a small calcified central disc protrusion at T7-8. There is mild disc degeneration in the mid and lower thoracic spine with anterior osteophytes. PARASPINAL SOFT TISSUES: Unremarkable. OTHER FINDINGS: Unremarkable. IMPRESSION: No evidence of vertebral compression fracture. Mild disc degeneration
--- NOTE | 2017-12-11 08:52 | CT ---
PROCEDURE: CT Cervical Spine without contrast HISTORY: Neck Pain COMPARISON: None available. TECHNIQUE: Axial computed tomography images were obtained of the cervical spine without the use of intravenous contrast. Coronal and sagittal reformatted images were created and reviewed. Radiation dose: Total exam DLP = 486 mGy-cm. This CT exam was performed using one or more of the following dose reduction techniques: Automated exposure control, adjustment of the mA and/or kV according to patient size, and/or use of iterative reconstruction technique. FINDINGS: VERTEBRAE: No fracture. Normal alignment. No destructive bony lesion. DISCS/SPINAL CANAL/NEURAL FORAMINA: No significant central canal or neural foraminal stenosis. Discs heights are grossly preserved. PARASPINAL SOFT TISSUES: Unremarkable. OTHER FINDINGS: None. IMPRESSION: Unremarkable CT of the cervical spine.
[2017-12-11] MEDS: Pantoprazole 40 mg EC Tab PO SCH (09:17)
--- NOTE | 2017-12-11 10:21 | RAD ---
PROCEDURE: Bilateral Ankle Radiographs. HISTORY: Ankle Pain post Fall COMPARISON: None FINDINGS: BONES: Right Ankle: Normal. No fracture. Left Ankle: Normal. No fracture. JOINTS: Right Ankle: Normal. No osteoarthritis. Ankle mortise maintained. Talar dome intact. Left Ankle: Normal. No osteoarthritis. Ankle mortise maintained. Talar dome intact. SOFT TISSUES: Right Ankle: Normal. Left Ankle: Normal. OTHER FINDINGS: None. IMPRESSION: Normal bilateral ankle radiographs.
--- NOTE | 2017-12-11 10:56 | US ---
PROCEDURE: Bilateral carotid artery duplex ultrasound HISTORY: Carotid stenosis PHYSICIAN(S): Jaime Puckett MD. TECHNIQUE: Duplex sonography and color-flow Doppler were used to evaluate the carotid bifurcations and limited segments of the vertebral arteries bilaterally. FINDINGS: There is mild smooth hypoechoic plaque noted at the carotid bifurcations bilaterally. The peak systolic velocity in the proximal right internal carotid artery is 82 cm/sec. This corresponds to a 20 to 39% proximal right ICA stenosis. Normal systolic velocities are noted in the proximal right external carotid artery. There is antegrade flow in the right vertebral artery. The peak systolic velocity in the proximal left internal carotid artery is 85 cm/sec. This corresponds to a 20 to 39% proximal left ICA stenosis. Normal systolic velocities are noted in the proximal left external carotid artery. There is antegrade flow in the left vertebral artery. IMPRESSION: 1. Bilateral 20-39% proximal ICA stenoses. 2. Antegrade flow in both vertebral arteries.
--- NOTE | 2017-12-11 11:20 | CP.PCM.PN ---
<Lyssa England - Last Filed: 12/11/17 14:20> Subjective - Date & Time of Evaluation Date of Evaluation: 12/11/17 Time of Evaluation: 09:15 - Subjective Subjective: IM progres note for Dr. Hurt-Lyssa England, PGY-1 Pt S & E at bedside. Pt reports multiple areas of soreness (neck, back, shoulders, "kidneys", knees, R ankle) after incident in elevator where she had a syncopal episode where she states she fell backwards landing on her buttock. Admits to SOB, nausea, "can' t take a deep breath", insomnia, B/L hip pain, B/L pelvic pain. Denies hematuria, CP, F & C, emesis. Objective - Vital Signs/Intake and Output Vital Signs (last 24 hours): Temp Pulse Resp BP Pulse Ox 98.6 F 74 18 115/74 96 12/11/17 06:00 12/11/17 06:00 12/11/17 06:00 12/11/17 06:00 12/11/17 06:00 Intake and Output: 12/11/17 12/11/17 06:59 18:59 Intake Total 240 Balance 240 - Medications Medications: Current Medications Alprazolam (Xanax) 0.5 mg PO TID PRN; Protocol PRN Reason: Anxiety Aspirin (Aspirin Chewable) 81 mg PO DAILY [facility] Last Admin: 12/11/17 09:17 Dose: 81 mg Gabapentin (Neurontin) 300 mg PO [facility] PRN Reason: Protocol Last Admin: 12/10/17 23:00 Dose: 300 mg Ibuprofen (Motrin Tab) 600 mg PO Q6H PRN PRN Reason: Pain, moderate (4-7) Last Admin: 12/10/17 23:11 Dose: 600 mg Ondansetron HCl (Zofran Inj) 4 mg IVP Q6H PRN PRN Reason: Nausea/Vomiting Last Admin: 12/11/17 09:46 Dose: 4 mg Pantoprazole Sodium (Protonix Ec Tab) 40 mg PO DAILY [facility] Last Admin: 12/11/17 09:17 Dose: 40 mg - Constitutional Appears: Non-toxic, No Acute Distress - Head Exam Head Exam: ATRAUMATIC, NORMAL INSPECTION, NORMOCEPHALIC - Eye Exam Eye Exam: EOMI, Normal appearance - ENT Exam ENT Exam: Mucous Membranes Moist, Normal Exam - Neck Exam Neck Exam: Full ROM, Tenderness (over lateral shoulders/neck) - Respiratory Exam Respiratory Exam: Clear to Ausculation Bilateral, NORMAL BREATHING PATTERN. absent: Rales, Rhonchi, Wheezes, Respiratory Distress, Stridor - Cardiovascular Exam Cardiovascular Exam: REGULAR RHYTHM, +S1, +S2 - GI/Abdominal Exam GI & Abdominal Exam: Soft, Tenderness (mild, over lower quadrants). absent: Distended, Firm, Guarding, Rigid - Extremities Exam Extremities Exam: Normal Inspection. absent: Tenderness - Back Exam Back Exam: NORMAL INSPECTION, tenderness (diffuse). absent: CVA tenderness (L) , CVA tenderness (R), paraspinal tenderness, vertebral tenderness - Neurological Exam Neurological Exam: Alert, Awake, CN II-XII Intact, Oriented x3 - Psychiatric Exam Psychiatric exam: Normal Affect, Normal Mood - Skin Skin Exam: Dry, Intact, Normal Color, Warm Assessment and Plan - Assessment and Plan (Free Text) Assessment: 56F w/PMH sig for GERD and lumbar radiculopathy admitted for CP R/O ACS & syncope Plan: Chest Pain R/O ACS EKGs w/findings of incomplete RBBB, sinus bradycardia ASA FU echo read FU trop at 1pm Appreciate cards consult Anxiety Xanax PRN Zofran PRN Appreciate psych recs Syncope CT brain neg Carotid U/S w/B/L 20-39% prox ICA stenosis, antegrade flowo B/L Neuro checks PT FU neuro recs Cervical/Back Pain CT cervical,thoracic, lumbar Spine all neg for acute fxr Motrin Right Ankle Pain B/L ankle X-ray neg Motrin PRN Hx of Lumbar Radiculopathy Cont home med -Neurontin 300 HS GI/DVT ppx SCDs PTX DW attending Samanta, PGY-1 <Blacna Hurt - Last Filed: 12/12/17 17:31> Objective - Vital Signs/Intake and Output Vital Signs (last 24 hours): Temp Pulse Resp BP Pulse Ox 97.6 F 66 18 142/100 H 99 12/12/17 05:37 12/12/17 05:37 12/12/17 05:37 12/12/17 05:37 12/12/17 05:37 Intake and Output: 12/12/17 12/12/17 06:59 18:59 Intake Total 0 Output Total 640 Balance 0 -640 - Labs Labs: 12/12/17 05:15 12/12/17 05:15 Attending/Attestation - Attestation I have personally seen and examined this patient.: Yes I have fully participated in the care of the patient.: Yes I have reviewed all pertinent clinical information, including history, physical exam and plan: Yes Notes (Text): 12/12/17 17:29 Attending note; Patient seen and examined with resident. Patient is a 56-year-old female admitted after a fall and syncope after stuck in the elevator. EKG is normal. Cardiac enzymes negative. Echocardiogram normal. Neurology evaluation appreciated. CT head is negative. Cervical spine is negative for acute fracture. 'X-ray of the ankle is negative. Patient has chronic lumbar disc issues. Patient is getting physical therapy as outpatient. Multiple complaints mostly secondary to anxiety. Psychiatric evaluation requested. Upon discharge the patient will follow-up with PMD dr. lisa.
[2017-12-11 13:15] LABS: BASO # 0.01 K/mm3 (0.0-2.0); BASO % 0.2 % (0.0-3.0); EOS # 0.1 (0.0-0.7); GRAN # 2.18 (1.4-6.5); GRAN % 46.6 % (50.0-68.0); HEMOGLOBIN 13.5 g/dL (12.0-16.0); LYMPH # 2.1 (1.2-3.4); LYMPH % 44.2 % (22.0-35.0); MEAN CELL VOLUME 86.4 fl (80.0-105.0); MEAN CORPUSCULAR HEMOGLOBIN 28.7 pg (25.0-35.0); MEAN CORPUSCULAR HGB CONC 33.3 g/dl (31.0-37.0); MEAN PLATELET VOLUME 9.3 fl (7.0-11.0); MONO # 0.3 (0.1-0.6); RBC 4.7 10^6/uL (3.5-6.1); RED CELL DISTRIBUTION WIDTH 12.9 % (11.5-14.5); WHITE BLOOD COUNT 4.7 10^3/ul (4.5-11.0)
[2017-12-11 13:37] LABS: ALB/GLOB RATIO 1.4 (1.1-1.8); ALBUMIN 4.1 g/dL (3.0-4.8); ALT/SGPT 37 U/L (7-56); AST/SGOT 17 U/L (14-36); BLOOD UREA NITROGEN 17 mg/dL (7-21); CALCIUM 10.1 mg/dL (8.4-10.5); GFR AFRICAN-AMERICAN > 60; GFR NON-AFRICAN AMERICAN > 60
[2017-12-11 13:41] LABS: TROPONIN I < 0.01 ng/mL
--- NOTE | 2017-12-11 14:14 | CP.PCM.CON ---
History of Present Illness - History of Present Illness History of Present Illness: 56 yr old woman who was in the elevator, trapped for 10 minutes, when she became dizzy and diaphoretic, and then slid down on to the ground. She had no chest pain, no weakness, no dysarthria, no aphasia, no headache. She states that she has had prior spells. She was admitted to [facility] and workup so far has been negative, including telemetry. PMH/PSH:GERD and lumbar radiculopathy FH/SH: ., no tobacco, no etoh. khmer speaking. All: nkda. On exam: Normal neurological examination. Past Patient History - Infectious Disease Hx of Infectious Diseases: None - Tetanus Immunizations Tetanus Immunization: Unknown - Past Medical History & Family History Past Medical History?: Yes - Past Social History Smoking Status: Never Smoked - CARDIAC Hx Angina: Yes Hx Hypertension: Yes - PULMONARY Hx Asthma: Yes - NEUROLOGICAL Hx Neurological Disorder: Yes (numbness) Hx Dizziness: Yes - HEENT Hx HEENT Problems: No - RENAL Hx Chronic Kidney Disease: No - ENDOCRINE/METABOLIC Hx Endocrine Disorders: No - HEMATOLOGICAL/ONCOLOGICAL Hx Blood Disorders: No - INTEGUMENTARY Hx Dermatological Problems: No - MUSCULOSKELETAL/RHEUMATOLOGICAL Hx Musculoskeletal Disorders: Yes (Ankle Surgery) Hx Back Pain: Yes Hx Falls: Yes Hx Unsteady Gait: Yes - GASTROINTESTINAL Hx Gastrointestinal Disorders: Yes (Gastritis) - GENITOURINARY/GYNECOLOGICAL Hx Genitourinary Disorders: No - PSYCHIATRIC Hx Anxiety: Yes Hx Substance Use: No - SURGICAL HISTORY Hx Surgeries: Yes (Ankle Surgery) - ANESTHESIA Hx Anesthesia: Yes Hx Anesthesia Reactions: No Hx Malignant Hyperthermia: No Meds Allergies/Adverse Reactions: Allergies Allergy/AdvReac Type Severity Reaction Status Date / Time No Known Allergies Allergy Verified 10/01/17 03:24 - Medications Medications: Current Medications Alprazolam (Xanax) 0.5 mg PO TID PRN; Protocol PRN Reason: Anxiety Aspirin (Aspirin Chewable) 81 mg PO DAILY [facility] Last Admin: 12/11/17 09:17 Dose: 81 mg Gabapentin (Neurontin) 300 mg PO HS [facility] PRN Reason: Protocol Last Admin: 12/10/17 23:00 Dose: 300 mg Ibuprofen (Motrin Tab) 600 mg PO Q6H PRN PRN Reason: Pain, moderate (4-7) Last Admin: 12/10/17 23:11 Dose: 600 mg Ondansetron HCl (Zofran Inj) 4 mg IVP Q6H PRN PRN Reason: Nausea/Vomiting Last Admin: 12/11/17 09:46 Dose: 4 mg Pantoprazole Sodium (Protonix Ec Tab) 40 mg PO DAILY [facility] Last Admin: 12/11/17 09:17 Dose: 40 mg Results - Vital Signs Recent Vital Signs: Last Vital Signs Temp 98.2 F 12/11/17 12:00 Pulse 64 12/11/17 12:00 Resp 17 12/11/17 12:00 BP 137/95 H 12/11/17 12:00 Pulse Ox 96 12/11/17 06:00 - Labs Result Diagrams: 12/11/17 13:10 12/11/17 13:10 Labs: Laboratory Results - last 24 hr 12/10/17 12/11/17 12/11/17 22:16 13:10 13:10 WBC 4.7 RBC 4.70 Hgb 13.5 Hct 40.6 MCV 86.4 MCH 28.7 MCHC 33.3 RDW 12.9 Plt Count 292 MPV 9.3 Gran % 46.6 L Lymph % (Auto) 44.2 H [place] % (Auto) 6.0 Eos % (Auto) 3.0 Baso % (Auto) 0.2 Gran # 2.18 Lymph # (Auto) 2.1 [place] # (Auto) 0.3 Eos # (Auto) 0.1 Baso # (Auto) 0.01 Sodium 141 Potassium 3.9 Chloride 105 Carbon Dioxide 27 Anion Gap 12 BUN 17 Creatinine 0.7 Est GFR ( Amer) > 60 Est GFR (Non-Af Amer) > 60 Random Glucose 118 H Calcium 10.1 Total Bilirubin 0.4 AST 17 ALT 37 Alkaline Phosphatase 78 Troponin I < 0.01 < 0.01 Total Protein 7.1 Albumin 4.1 Globulin 2.9 Albumin/Globulin Ratio 1.4 Assessment & Plan - Assessment and Plan (Free Text) Assessment: 56 yr old woman who most likely had vasovagal syncopal attack in elevator with no neurological basis. plan; 1. no neurological intervention at this time. please reconsult prn.
[2017-12-11] MEDS ORDERED: Sucralfate 1 gm/10 ml Oral Susp UD PO ONE (14:30)
--- NOTE | 2017-12-11 14:48 | CARD ---
APPROVED REPORT EXAM: Two-dimensional and M-mode echocardiogram with Doppler and color Doppler. INDICATION Chest Pain 2D DIMENSIONS Left Atrium (2D)3.7 (1.6-4.0cm)IVSd1.0 (0.7-1.1cm) LVDd4.0 (3.9-5.9cm)PWd1.0 (0.7-1.1cm) LVDs2.7 (2.5-4.0cm)FS (%) 31.5 % LVEF (%)60.0 (>50%) M-Mode DIMENSIONS Aortic Root2.40 (2.2-3.7cm)Aortic Cusp Exc.1.80 (1.5-2.0cm) Aortic Valve AoV Peak Hisftuqi673.0cm/Ty Peak GR.11mmHg Mitral Valve MV E Cebfctin84.4cm/sMV A Lzjjrzzc65.7cm/sE/A ratio1.3 TDI E/Lateral E'0.0E/Medial E'0.0 Tricuspid Valve TR Peak Ismbuuqv134dt/sRAP [id number] Peak Gr.7mmHg [id number] LEFT VENTRICLE The left ventricle is normal size. There is normal left ventricular wall thickness. The left ventricular function is normal. The left ventricular ejection fraction is within the normal range. There is normal LV segmental wall motion. The left ventricular diastolic function is normal. No left ventricle thrombus noted on this study. RIGHT VENTRICLE The right ventricle is normal size. There is normal right ventricular wall thickness. The right ventricular systolic function is normal. ATRIA The left atrium size is normal. The right atrium size is normal. AORTIC VALVE The aortic valve is normal in structure. No aortic regurgitation is present. There is no aortic valvular stenosis. MITRAL VALVE The mitral valve is normal in structure. There is no mitral valve regurgitation noted. There is no mitral valve stenosis. TRICUSPID VALVE The tricuspid valve is normal in structure. There is no tricuspid valve regurgitation noted. PULMONIC VALVE The pulmonary valve is normal in structure. There is trace pulmonic valvular regurgitation. GREAT VESSELS The aortic root is normal in size. PERICARDIAL EFFUSION There is no pericardial effusion. <Conclusion> The left ventricle is normal size. There is normal left ventricular wall thickness. The left ventricular function is normal. The left ventricular ejection fraction is within the normal range. There is normal LV segmental wall motion. The left ventricular diastolic function is normal.
--- NOTE | 2017-12-11 17:49 | CP.PCM.PN ---
Subjective - Date & Time of Evaluation Date of Evaluation: 12/11/17 Time of Evaluation: 17:40 - Subjective Subjective: PGY-[address] Hurt CC: "crying for kidney pain", per RN Ms Serra, 56 F, reported multiple areas of soreness (neck, back, shoulders, "kidneys", knees, R ankle) after incident in elevator where she had a syncopal episode where she states she fell backwards landing on her buttock. CT cervical ,thoracic, lumbar Spine all neg for acute fxr. RN noticed that pt was crying, and when asked why, pt worried about kidney failure. When I went into the room, pt handed me her cell phone with a [employer] health website citing 15 symptoms of kidney failure. We went over all 15 symptoms, and she was only positive for ( +) lower back pain, (+) nausea, (+) fatique, but negative for confusion, seizure , skin irritation, urinary urgency, swelling, metallic flavor, significant anemia, SOB, high potassium, sleep disturbance. Then I went over the CT head, neck, thoracic, and lumbar spine result with her. I also went over her kidney function shown on the lab result. In addition, pt complained of IV site soreness. No erythema. No swelling. No increased warmth. RN had taken out the heplock. Pt currently has no IV access. Deneis Headache, dizziness, vision changes, Chest pain, SOB, dysuria. O: T98.5, HR 66. 147/101, RR20, 99%RA GEN: Nervous, NAD HEENT: EOMI, non-icteric, moist mucosa Card: regular S1 S2 Pulm: CTA b/l, no w/r/r Back: reproducible tenderness at mid-L4-L5 A: Spinal stenosis at L3-L5 Lumbar Radiculopathy, chronic Anxiety from acute on chronic lower back pain, likely triggered from the fall. Had already ruled out fracture. Hypertension, transient, secondary to anxiety - asymptomatic P: - Cont home med -Neurontin 300 HS - Bangay topical for lower back pain - Switch zofran to oral disintegrating tablet PRN - reassurance provided - continue xanax PRN - No need for hypertension meds Objective - Vital Signs/Intake and Output Vital Signs (last 24 hours): Temp Pulse Resp BP Pulse Ox 98.5 F 66 20 147/101 H 96 05/01/18 17:30 12/11/17 17:30 12/11/17 17:30 12/11/17 17:30 12/11/17 06:00 Intake and Output: 12/11/17 12/11/17 06:59 18:59 Intake Total 240 Balance 240 - Medications Medications: Current Medications Alprazolam (Xanax) 0.5 mg PO TID PRN; Protocol PRN Reason: Anxiety Aspirin (Aspirin Chewable) 81 mg PO DAILY [facility] Last Admin: 12/11/17 09:17 Dose: 81 mg Camphor/Menthol (Bengay) 0.1 gm TOP TID [facility] Gabapentin (Neurontin) 300 mg PO HS [facility] PRN Reason: Protocol Last Admin: 12/10/17 23:00 Dose: 300 mg Ibuprofen (Motrin Tab) 600 mg PO Q6H PRN PRN Reason: Pain, moderate (4-7) Last Admin: 12/10/17 23:11 Dose: 600 mg Ondansetron HCl (Zofran Odt) 4 mg PO Q6H PRN PRN Reason: Nausea/Vomiting Pantoprazole Sodium (Protonix Ec Tab) 40 mg PO DAILY [facility] Last Admin: 12/11/17 09:17 Dose: 40 mg - Labs Labs: 12/11/17 13:10 12/11/17 13:10
[2017-12-11] MEDS: Menthol/Methyl Salicylate Ointment(1 oz) TOP SCH (18:17)
--- NOTE | 2017-12-11 18:47 | CARD ---
APPROVED REPORT EKG Measurement Heart [id number] <Conclusion> Normal sinus rhythm Incomplete right bundle branch block Borderline ECG
[2017-12-12 00:01] VITALS: O2SAT 99
--- NOTE | 2017-12-12 01:23 | CON ---
DATE: HISTORY OF PRESENT ILLNESS: In short, patient is a 56-year-old Afghan female. Patient was admitted on the medical site, status post self-reported syncopal episode after patient was stuck in the elevator for a few minutes. Psych consult was called for evaluation of possible anxiety. Patient was seen and examined. Patient presented to be well. Patient denied being depressed. Patient denied history of anxiety disorder. It was the first episode when patient was feeling very anxious and most likely, patient is claustrophobic. Patient denied that she is hearing voices, seeing things. Patient denied paranoid ideation. Patient denied that she has thoughts of harming herself or others. Denied previous history of mental illness, denied history of being admitted to the psychiatric inpatient unit and denied history of suicidal attempts. Patient reported that her family is very supportive. Patient has as well as has kids, lives in [place]. Patient does not want to have followup with the psychiatrist and does not feel like something is wrong with her from the psychiatric standpoint. PHYSICAL EXAMINATION: VITAL SIGNS: This sign writer hand reviewed vital signs, seems to be stable. Temperature 98.2, pulse is 64, blood pressure 137/95, respirations 17, oxygen saturation is 96. MEDICATIONS: Reviewed. Patient is on Xanax 0.5 mg twice a day as needed for anxiety, aspirin, Neurontin 300 mg at the nighttime, Motrin, Zofran and Protonix. LABORATORY DATA: Patient had labs, which are within normal limits. Multiple tests were done. Ankle x-ray, also carotid artery ultrasonogram, echocardiogram, thoracic spine CT scan, lumbar spine CT scan, cervical spine CT scan and electrocardiogram was done. Head CT scan also done. Chest x-ray was also done. Everything seems to be negative. MENTAL STATUS EXAMINATION: Patient is alert and oriented, pleasant, cooperative. Good eye contact. Hygiene is good. Mood described "I feel fine today, but yesterday, they were treating me badly." Affect was reactive, mood congruent. Thought process was coherent and goal directed. Thought content, patient denied visual, auditory or tactile hallucinations. Denied paranoid ideation. Patient denied thoughts of harming herself or others. Denied intents or plan. As per medical team nurses, patient is constantly asking medication for pain, complained of multiple physical complaints. Besides that, patient has good appetite, fair sleep. IMPRESSION: Most likely, patient is claustrophobic. Patient denied being anxious, denied being depressed. PLAN: This sign writer hand could not find any pathology besides claustrophobia, no medication was prescribed. Patient deemed to be not in any imminent danger to self or others. If patient is willing to have followup appointment at [facility], please provide information, but the patient does not want to be seen by psychiatrist and does not want to have followup appointment with the psychiatrist. Patient is not in any imminent danger to self or others. Should you have any questions, give me a call back. This sign writer hand will sign off. Kaya Ang MD
[2017-12-12 05:38] VITALS: BP 142/100; PULSE 66; RESP 18; TEMP 97.6
[2017-12-12 05:49] LABS: BASO # 0.02 K/mm3 (0.0-2.0); BASO % 0.5 % (0.0-3.0); EOS # 0.2 (0.0-0.7); EOS % 4.1 % (1.5-5.0); GRAN # 1.77 (1.4-6.5); GRAN % 42.3 % (50.0-68.0); HEMOGLOBIN 13.4 g/dL (12.0-16.0); LYMPH # 1.8 (1.2-3.4); LYMPH % 43.3 % (22.0-35.0); MEAN CELL VOLUME 86.2 fl (80.0-105.0); MEAN CORPUSCULAR HEMOGLOBIN 28.9 pg (25.0-35.0); MEAN CORPUSCULAR HGB CONC 33.5 g/dl (31.0-37.0); MEAN PLATELET VOLUME 9.8 fl (7.0-11.0); MONO # 0.4 (0.1-0.6); MONO % 9.8 % (1.0-6.0); RBC 4.64 10^6/uL (3.5-6.1); WHITE BLOOD COUNT 4.2 10^3/ul (4.5-11.0)
[2017-12-12 06:42] LABS: ALB/GLOB RATIO 1.2 (1.1-1.8); ALBUMIN 3.6 g/dL (3.0-4.8); ALT/SGPT 24 U/L (7-56); AST/SGOT 22 U/L (14-36); BLOOD UREA NITROGEN 13 mg/dL (7-21); CALCIUM 9.7 mg/dL (8.4-10.5); GFR AFRICAN-AMERICAN > 60; GFR NON-AFRICAN AMERICAN > 60
[2017-12-12] MEDS: Menthol/Methyl Salicylate Ointment(1 oz) TOP SCH (10:26)
[2017-12-12] MEDS: Pantoprazole 40 mg EC Tab PO SCH (10:26)
--- NOTE | 2017-12-12 15:36 | CP.PCM.DIS ---
<Oni San - Last Filed: 12/12/17 15:31> Provider - Provider Date of Admission: 12/10/17 19:41 Attending physician: Blanca Hurt MD Primary care physician: Attila Gorman MD Consults: Cardio: Angelo Neuro: Edward Psych: Sav Time Spent in preparation of Discharge (in minutes): 35 Diagnosis - Discharge Diagnosis (1) Vasovagal syncope Status: Acute Priority: High (2) Panic attack Status: Acute Priority: High (3) Dizziness Status: Acute Priority: Medium (4) Chest pain Status: Resolved Priority: Medium Hospital Course - Lab Results Lab Results: Most Recent Lab Values WBC 4.2 10^3/ul (4.5-11.0) L 12/12/17 05:15 RBC 4.64 10^6/uL (3.5-6.1) 12/12/17 05:15 Hgb 13.4 g/dL (12.0-16.0) 12/12/17 05:15 Hct 40.0 % (36.0-48.0) 12/12/17 05:15 MCV 86.2 fl (80.0-105.0) 12/12/17 05:15 MCH 28.9 pg (25.0-35.0) 12/12/17 05:15 MCHC 33.5 g/dl (31.0-37.0) 12/12/17 05:15 RDW 13.0 % (11.5-14.5) 12/12/17 05:15 Plt Count 299 10^3/uL (120.0-450.0) 12/12/17 05:15 MPV 9.8 fl (7.0-11.0) 12/12/17 05:15 Gran % 42.3 % (50.0-68.0) L 12/12/17 05:15 Lymph % (Auto) 43.3 % (22.0-35.0) H 12/12/17 05:15 [place] % (Auto) 9.8 % (1.0-6.0) H 12/12/17 05:15 Eos % (Auto) 4.1 % (1.5-5.0) 12/12/17 05:15 Baso % (Auto) 0.5 % (0.0-3.0) 12/12/17 05:15 Gran # 1.77 (1.4-6.5) 12/12/17 05:15 Lymph # (Auto) 1.8 (1.2-3.4) 12/12/17 05:15 [place] # (Auto) 0.4 (0.1-0.6) 12/12/17 05:15 Eos # (Auto) 0.2 (0.0-0.7) 12/12/17 05:15 Baso # (Auto) 0.02 K/mm3 (0.0-2.0) 12/12/17 05:15 Sodium 142 mmol/L (132-148) 12/12/17 05:15 Potassium 3.6 mmol/L (3.6-5.0) 12/12/17 05:15 Chloride 106 mmol/L (98-107) 12/12/17 05:15 Carbon Dioxide 27 mmol/L (21-33) 12/12/17 05:15 Anion Gap 13 (10-20) 12/12/17 05:15 BUN 13 mg/dL (7-21) 12/12/17 05:15 Creatinine 0.6 mg/dl (0.7-1.2) L 12/12/17 05:15 Est GFR ( Amer) > 60 12/12/17 05:15 Est GFR (Non-Af Amer) > 60 12/12/17 05:15 Random Glucose 106 mg/dL (70-110) 12/12/17 05:15 Calcium 9.7 mg/dL (8.4-10.5) 12/12/17 05:15 Total Bilirubin 0.5 mg/dL (0.2-1.3) 12/12/17 05:15 AST 22 U/L (14-36) 12/12/17 05:15 ALT 24 U/L (7-56) 12/12/17 05:15 Alkaline Phosphatase 70 U/L (38-126) 12/12/17 05:15 Lactate Dehydrogenase 449 U/L (333-699) 12/10/17 13:30 Total Creatine Kinase 40 U/L (35-230) 12/10/17 13:30 Troponin I < 0.01 ng/mL 12/11/17 13:10 Total Protein 6.6 g/dL (5.8-8.3) 12/12/17 05:15 Albumin 3.6 g/dL (3.0-4.8) 12/12/17 05:15 Globulin 3.0 gm/dL 12/12/17 05:15 Albumin/Globulin Ratio 1.2 (1.1-1.8) 12/12/17 05:15 - Hospital Course Hospital Course: This is a 56F with PMH of GERD and lumbar radiculopathy who was admitted to [facility] for syncope workup and chest pain after syncopal episode in elevator causing pt to fall. While here, she underwent testing to assess for causes of syncope, including Echocardiogram, multiple EKGs, a Head CT, and Carotid duplex. Head CT was negative for acute intracranial process. Carotid duplex notable for anterograde flow and 20-39% stenosis bilaterally. EKGs were unremarkable, and Echo was notable for a normal EF (60%) and normal structure. She was also seen by Neuro and Psych. As per Neuro, unlikely to be neurogenic cause of syncope, more likely vasovagal syncope, no acute intervention required. As per Psych, patient denies any psychiatric issues, and does not want to follow up with Psych as outpatient. She was also seen by PT, who recommended home PT, followed by outpatient PT. Today, patient continues to complain of multiple areas of soreness (back, knee, legs, R shoulder), and intermittent dizziness, nausea, and reports 2 episodes of clear emesis. Believes her nausea/emesis is due to her elevated BP (was 158/ 84 on admission, 142/100 this AM), and is concerned about this as well. Explained that while she had scattered episodes of elevated BP, her average BP was in the 120's/70's, and that the few elevated episodes were more likely 2/2 her other symptoms (nausea, emesis, pain); pain refused to accept this explanation, insisting that she knows her body and that this is the cause of her symptoms. Overnight, house physician called to see patient because she developed fear that she was developing kidney failure based upon what she read about her current pain symptoms online; pt reassured by house physician (please see progress note by house physician on 12/11/17 for further details). Today, continues to be concerned about her balance, her back, and her blood pressure. Reported wanted home PT, but now demanding that she be transferred to an inpatient rehab instead. Explained that she did not qualify for inpatient rehab , and that if she did not want PT at home, her only other option was outpatient PT. She remained adamantly against this initially, but after discussions with PT, Handhole Machine Operator, and Bulbs Farmworker to explain it further to her, patient became amenable to outpatient PT. Scripts were provided for Meclizine prn for nausea/emesis/dizziness, Motrin prn for R shoulder pain, Lisinopril 2.5mg daily , and for a rolling walker; she was also provided with a script for outpatient PT. She was instructed to resume her home medications as prescribed, to fill and take her new medications as prescribed, to follow up with her PMD within 1 week of discharge, and to follow up with outpatient PT. She expressed understanding of these instructions. She was then discharged. Patient seen, reviewed, and discussed with attending, Dr. Hurt. Discharge Exam - Head Exam Head Exam: ATRAUMATIC, NORMAL INSPECTION, NORMOCEPHALIC - Eye Exam Eye Exam: EOMI, Normal appearance - ENT Exam ENT Exam: Mucous Membranes Moist - Neck Exam Neck exam: Full Rom - Respiratory Exam Respiratory Exam: Clear to PA & Lateral, NORMAL BREATHING PATTERN, UNREMARKABLE. absent: Accessory Muscle Use, Chest Wall Tenderness, Prolonged Expiratory Phase, Respiratory Distress - Cardiovascular Exam Cardiovascular Exam: REGULAR RHYTHM, RRR, +S1, +S2. absent: Bradycardia, Tachycardia, Irregular Rhythm, +S4 - GI/Abdominal Exam GI & Abdominal Exam: Normal Bowel Sounds, Soft, Tenderness (reports mild diffuse tenderness along lower abdomen in band-like pattern) - Extremities Exam Additional comments: normal inspection, no appreciable LE edema or asymmetry, no appreciable calf- tenderness - Neurological Exam Additional comments: awake and alert, following all commands, moving all extremities spontaneously motor appears grossly intact and equal - Psychiatric Exam Psychiatric exam: Anxious, Normal Affect - Skin Skin Exam: Dry, Intact, Normal Color, Warm Discharge Plan - Discharge Medications Prescriptions: Ibuprofen [Motrin Tab] 800 mg PO Q6H PRN #12 tab PRN Reason: Shoulder Pain Lisinopril [Zestril] 2.5 mg PO DAILY #30 tab Meclizine HCl 12.5 mg PO TID PRN #15 tablet PRN Reason: dizziness/nausea/vomiting - Follow Up Plan Condition: FAIR Disposition: HOME/ ROUTINE Instructions: Nausea and Vomiting, Adult (DC), Syncope (Fainting) (DC), Vasovagal Response (DC), Chest Pain (ED) Additional Instructions: -Please resume all home medications as previously prescribed. -You have been given prescriptions for Lisinopril (a blood pressure medicine) to be taken daily, Motrin (an anti-inflammatory medication for shoulder pain) to be taken up to every 6 hours as needed, and Meclizine (a medicine for dizziness, nausea, and vomiting) to be taken up to every 8 hours as needed. Please fill these prescriptions and take as instructed. -Please follow up with your Primary Doctor (Dr. Gorman) within 1 week of discharge. -You have been seen by the physical therapist, who has cleared you for discharge , but recommends home physical therapy before resuming your outpatient physical therapy. A script for home PT has been given to you. -Please return to a hospital if you experience new concerning or worsening symptoms. Referrals: Attila Gorman MD [Primary Care Provider] - <Blanca Hurt - Last Filed: 12/12/17 17:32> Provider - Provider Date of Admission: 12/10/17 19:41 Attending physician: Blanca Hurt MD Primary care physician: Attila Gorman MD Hospital Course - Lab Results Lab Results: Most Recent Lab Values WBC 4.2 10^3/ul (4.5-11.0) L 12/12/17 05:15 RBC 4.64 10^6/uL (3.5-6.1) 12/12/17 05:15 Hgb 13.4 g/dL (12.0-16.0) 12/12/17 05:15 Hct 40.0 % (36.0-48.0) 12/12/17 05:15 MCV 86.2 fl (80.0-105.0) 12/12/17 05:15 MCH 28.9 pg (25.0-35.0) 12/12/17 05:15 MCHC 33.5 g/dl (31.0-37.0) 12/12/17 05:15 RDW 13.0 % (11.5-14.5) 12/12/17 05:15 Plt Count 299 10^3/uL (120.0-450.0) 12/12/17 05:15 MPV 9.8 fl (7.0-11.0) 12/12/17 05:15 Gran % 42.3 % (50.0-68.0) L 12/12/17 05:15 Lymph % (Auto) 43.3 % (22.0-35.0) H 12/12/17 05:15 [place] % (Auto) 9.8 % (1.0-6.0) H 12/12/17 05:15 Eos % (Auto) 4.1 % (1.5-5.0) 12/12/17 05:15 Baso % (Auto) 0.5 % (0.0-3.0) 12/12/17 05:15 Gran # 1.77 (1.4-6.5) 12/12/17 05:15 Lymph # (Auto) 1.8 (1.2-3.4) 12/12/17 05:15 [place] # (Auto) 0.4 (0.1-0.6) 12/12/17 05:15 Eos # (Auto) 0.2 (0.0-0.7) 12/12/17 05:15 Baso # (Auto) 0.02 K/mm3 (0.0-2.0) 12/12/17 05:15 Sodium 142 mmol/L (132-148) 12/12/17 05:15 Potassium 3.6 mmol/L (3.6-5.0) 12/12/17 05:15 Chloride 106 mmol/L (98-107) 12/12/17 05:15 Carbon Dioxide 27 mmol/L (21-33) 12/12/17 05:15 Anion Gap 13 (10-20) 12/12/17 05:15 BUN 13 mg/dL (7-21) 12/12/17 05:15 Creatinine 0.6 mg/dl (0.7-1.2) L 12/12/17 05:15 Est GFR ( Amer) > 60 12/12/17 05:15 Est GFR (Non-Af Amer) > 60 12/12/17 05:15 Random Glucose 106 mg/dL (70-110) 12/12/17 05:15 Calcium 9.7 mg/dL (8.4-10.5) 12/12/17 05:15 Total Bilirubin 0.5 mg/dL (0.2-1.3) 12/12/17 05:15 AST 22 U/L (14-36) 12/12/17 05:15 ALT 24 U/L (7-56) 12/12/17 05:15 Alkaline Phosphatase 70 U/L (38-126) 12/12/17 05:15 Lactate Dehydrogenase 449 U/L (333-699) 12/10/17 13:30 Total Creatine Kinase 40 U/L (35-230) 12/10/17 13:30 Troponin I < 0.01 ng/mL 12/11/17 13:10 Total Protein 6.6 g/dL (5.8-8.3) 12/12/17 05:15 Albumin 3.6 g/dL (3.0-4.8) 12/12/17 05:15 Globulin 3.0 gm/dL 12/12/17 05:15 Albumin/Globulin Ratio 1.2 (1.1-1.8) 12/12/17 05:15 Attending/Attestation - Attestation I have personally seen and examined this patient.: Yes I have fully participated in the care of the patient.: Yes I have reviewed all pertinent clinical information, including history, physical exam and plan: Yes Notes (Text): 12/12/17 17:31 Attending note; Patient seen and examined with resident. Patient is a 56-year-old female admitted after a fall and syncope after stuck in the elevator. EKG is normal. Cardiac enzymes negative. Echocardiogram normal. Neurology evaluation appreciated. CT head is negative. Cervical spine is negative for acute fracture. 'X-ray of the ankle is negative. Patient has chronic lumbar disc issues. Patient is getting physical therapy as outpatient. Multiple complaints mostly secondary to anxiety. Psychiatric evaluation appreciated. Patient has personality disorder/multiple complaints. tolerating diet. PT evaluation appreciated. Prescription for outpatient PT given. Upon discharge the patient will follow-up with PMD dr. lisa.
== END 2017-12-12 16:55 | disposition home or self-care (01) ==
LOC: ED 11:44 → ERH 19:41 → 2RNO 21:32 → 5RSO 12-12 08:52
PROVIDERS: ADMIT Internal Medicine; ATTEND Internal Medicine
DX: R55 Syncope and collapse (principal); F41.0 Panic disorder [episodic paroxysmal anxiety]; R42 Dizziness and giddiness; F40.240 Claustrophobia; M54.16 Radiculopathy, lumbar region; M48.061 Spinal stenosis, lumbar region without neurogenic claudication; F06.4 Anxiety disorder due to known physiological condition; F60.9 Personality disorder, unspecified; G89.29 Other chronic pain; I10 Essential (primary) hypertension; J45.909 Unspecified asthma, uncomplicated; K21.9 Gastro-esophageal reflux disease without esophagitis; I45.10 Unspecified right bundle-branch block; W19.XXXA Unspecified fall, initial encounter
CPT/HCPCS: 36415; 70450; 71045; 72125; 72128; 72131; 73610; 80053; 82550; 83615; 84484; 85025; 93005; 93306; 93880; 96374; 97116; 97162; 99283; G0378; G8978; G8979; J2405

== ENCOUNTER 2018-01-21 04:06 | Emergency (ER) | payer OTHER ==
[2018-01-21 04:06] VITALS: BMI 32.1
[2018-01-21 04:22] VITALS: RESP 18; TEMP 97.5; O2SAT 100
[2018-01-21] MEDS ORDERED: DiphenhydrAMINE 50 mg/ml Inj IVP STA (04:35)
--- NOTE | 2018-01-21 04:42 | ED PDOC ---
Arrival/HPI - General Chief Complaint: Headache Time Seen by Provider: 01/21/18 04:07 Historian: Patient - History of Present Illness Narrative History of Present Illness (Text): This patient is a 56 year old female with a PMHx of HTN, insomnia, GERD and lumbar radiculopathy who presents to the emergency room for evaluation and treatment of headache with associated left sided maxillary face. Symptoms began yesterday with no specific provoking event. Denies trauma to the head and LOC. Denies associated vision changes, auditory vision, and dizziness. Further denies fever, chills, chest pain, SOB, abdominal pain, vomiting, diarrhea, constipation, and urinary symptoms. Past Medical History - Provider Review Nursing Documentation Reviewed: Yes - Travel History Have you recently traveled outside [place] w/in the past 3 mons?: No - Infectious Disease Hx of Infectious Diseases: None - Tetanus Immunization Tetanus Immunization: Unknown - Reproductive Menopause: Yes - Cardiac Hx Cardiac Disorders: Yes Hx Angina: Yes Hx Hypertension: Yes - Pulmonary Hx Respiratory Disorders: Yes Hx Asthma: Yes - Neurological Hx Neurological Disorder: Yes (numbness) Hx Dizziness: Yes - HEENT Hx HEENT Disorder: No - Renal Hx Renal Disorder: No - Endocrine/Metabolic Hx Endocrine Disorders: No - Hematological/Oncological Hx Blood Disorders: No - Integumentary Hx Dermatological Disorder: No - Musculoskeletal/Rheumatological Hx Musculoskeletal Disorders: Yes (Ankle Surgery) Hx Back Pain: Yes Hx Falls: Yes Hx Unsteady Gait: Yes - Gastrointestinal Hx Gastrointestinal Disorders: Yes (Gastritis) - Genitourinary/Gynecological Hx Genitourinary Disorders: No - Psychiatric Hx Anxiety: Yes Hx Substance Use: No - Surgical History Hx Orthopedic Surgery: Yes (Right Ankle) Other/Comment: OVARIES/FIBROIDS - Anesthesia Hx Anesthesia: Yes Hx Anesthesia Reactions: No Hx Malignant Hyperthermia: No - Suicidal Assessment Feels Threatened In Home Enviroment: No Family/Social History - Physician Review Nursing Documentation Reviewed: Yes Family/Social History: Unknown Family HX Smoking Status: Never Smoked Hx Alcohol Use: No Hx Substance Use: No Hx Substance Use Treatment: No Allergies/Home Meds Allergies/Adverse Reactions: Allergies No Known Allergies Allergy (Verified 10/01/17 03:24) per patient Home Medications: Home Meds Medication Instructions Recorded Confirmed Acetaminophen [Tylenol Extra 500 mg PO Q8 PRN 01/21/18 01/21/18 Strength] Hydrochlorothiazide [Microzide] 12.5 mg PO DAILY 01/21/18 01/21/18 Sertraline [Zoloft] 50 mg PO DAILY 01/21/18 01/21/18 Review of Systems - Physician Review All systems were reviewed & negative as marked: Yes - Review of Systems Constitutional: Normal Eyes: Normal ENT: Normal Respiratory: Normal Cardiovascular: Normal Gastrointestinal: Nausea Genitourinary Female: Normal Musculoskeletal: Normal Skin: Normal Neurological: Normal Endocrine: Normal Hemo/Lymphatic: Normal Psychiatric: Normal Physical Exam Vital Signs Reviewed: Yes Vital Signs Temp Pulse Resp BP Pulse Ox 01/21/18 04:20 97.5 F L 64 18 152/105 H 100 Temperature: Afebrile Blood Pressure: Hypertensive Pulse: Regular Respiratory Rate: Normal Appearance: Positive for: Well-Appearing, Non-Toxic, Comfortable Pain Distress: None Mental Status: Positive for: Alert and Oriented X 3 - Systems Exam Head: Present: Atraumatic, Normocephalic Pupils: Present: PERRL Extroacular Muscles: Present: EOMI Conjunctiva: Present: Normal Mouth: Present: Moist Mucous Membranes. No: Normal Teeth Neck: Present: Normal Range of Motion Respiratory/Chest: Present: Clear to Auscultation, Good Air Exchange. No: Respiratory Distress, Accessory Muscle Use Cardiovascular: Present: Regular Rate and Rhythm, Normal S1, S2. No: Murmurs Abdomen: No: Tenderness, Distention, Peritoneal Signs Back: Present: Normal Inspection Upper Extremity: Present: Normal Inspection. No: Cyanosis, Edema Lower Extremity: Present: Normal Inspection. No: Edema Neurological: Present: GCS=15, CN II-XII Intact, Speech Normal Skin: Present: Warm, Dry, Normal Color. No: Rashes Psychiatric: Present: Alert, Oriented x 3, Normal Insight, Normal Concentration Medical Decision Making ED Course and Treatment: Assessment and Plan: Patient is a 56 year old female with a PMHx of HTN, insomnia, GERD and lumbar radiculopathy who presents to the emergency room for evaluation and treatment of headache with associated left sided maxillary pain. Headache Maxillary Pain 01/21/18 04:52 - CBC, CMP - PT, PTT - Head CT without contrast - Benadryl and Reglan 01/21/18 06:17 - Head CT without contrast- no active disease - ok to discharge to home - Lab Interpretations Lab Results: 01/21/18 04:50 01/21/18 04:50 Lab Results 01/21/18 04:50: Sodium 142, Potassium 3.9, Chloride 104, Carbon Dioxide 27, Anion Gap 14, BUN 11, Creatinine 0.5 L, Est GFR ( Amer) > 60, Est GFR ( Non-Af Amer) > 60, Random Glucose 120 H, Calcium 9.7, Total Bilirubin 0.4, AST 23, ALT 40, Alkaline Phosphatase 80, Total Protein 7.1, Albumin 4.1, Globulin 3.0, Albumin/Globulin Ratio 1.4 01/21/18 04:50: PT 10.9, INR 0.95, APTT 29.0 01/21/18 04:50: WBC 4.8, RBC 4.58, Hgb 13.1, Hct 38.9, MCV 84.9, MCH 28.6, MCHC 33.7, RDW 12.9, Plt Count 274, MPV 9.9, Gran % 58.3, Lymph % (Auto) 30.8, Foster % (Auto) 8.0 H, Eos % (Auto) 2.5, Baso % (Auto) 0.4, Gran # 2.78, Lymph # (Auto ) 1.5, Foster # (Auto) 0.4, Eos # (Auto) 0.1, Baso # (Auto) 0.02 - RAD Interpretation Narrative RAD Interpretations (Text): CT Head- no acute intracranial finding Radiology Orders: 01/21/18 04:35 HEAD W/O CONTRAST [CT] Stat - Medication Orders Current Medication Orders: Discontinued Medications Acetaminophen (Tylenol 325mg Tab) 975 mg PO STAT STA Stop: 01/21/18 04:37 Last Admin: 01/21/18 05:09 Dose: Not Given Non-Admin Reason: Patient Refused Diphenhydramine HCl (Benadryl) 25 mg IVP STAT STA Stop: 01/21/18 04:36 Last Admin: 01/21/18 05:08 Dose: 25 mg IVP Administration Document 01/21/18 05:08 CNR (Rec: 01/21/18 05:08 CNR [id number]) Charges for Administration # of IVP Administrations 1 Metoclopramide HCl (Reglan) 10 mg IVP STAT STA Stop: 06/11/18 04:36 Last Admin: 01/21/18 05:08 Dose: 10 mg IVP Administration Document 01/21/18 05:08 CNR (Rec: 01/21/18 05:09 CNR [id number]) Charges for Administration # of IVP Administrations 1 Disposition/Present on Arrival - Present on Arrival Any Indicators Present on Arrival: No History of DVT/PE: No History of Uncontrolled Diabetes: No Urinary Catheter: No History of Decub. Ulcer: No History Surgical Site Infection Following: None - Disposition Have Diagnosis and Disposition been Completed?: Yes Diagnosis: Headache Disposition: HOME/ ROUTINE Disposition Time: 06:24 Patient Plan: Discharge Patient Problems: Current Active Problems Problem Status Onset Headache Acute Condition: GOOD Discharge Instructions (ExitCare): Headache, Adult Additional Instructions: FRANK SIDDIQUI, thank you for letting us take care of you today. Your provider was Bob Seay DO and you were treated for HEADACHE SINCE YESTERDAY. The emergency medical care you received today was directed at your acute symptoms. If you were prescribed any medication, please fill it and take as directed. It may take several days for your symptoms to resolve. Return to the Emergency Department if your symptoms worsen, do not improve, or if you have any other problems. Please contact your doctor or call one of the physicians/clinics you have been referred to that are listed on the Patient Visit Information form that is included in your discharge packet. Bring any paperwork you were given at discharge with you along with any medications you are taking to your follow up visit. Our treatment cannot replace ongoing medical care by a primary care provider outside of the emergency department. Thank you for allowing the [facility] team to be part of your care today. If you had an X-Ray or CT scan: A Radiologist will review the ED reading if any change in treatment is needed we will contact you. If you had a blood, urine, or wound culture: It will take several days for the results, if any change in treatment is needed we will contact you. If you had an STI test: It will take 48 hours for the results. Please call after 1 week if you have not heard back. Forms: [facility] (Kiswahili)
[2018-01-21 05:07] LABS: BASO # 0.02 K/mm3 (0.0-2.0); BASO % 0.4 % (0.0-3.0); EOS # 0.1 (0.0-0.7); EOS % 2.5 % (1.5-5.0); GRAN # 2.78 (1.4-6.5); GRAN % 58.3 % (50.0-68.0); HEMOGLOBIN 13.1 g/dL (12.0-16.0); LYMPH # 1.5 (1.2-3.4); LYMPH % 30.8 % (22.0-35.0); MEAN CELL VOLUME 84.9 fl (80.0-105.0); MEAN CORPUSCULAR HEMOGLOBIN 28.6 pg (25.0-35.0); MEAN CORPUSCULAR HGB CONC 33.7 g/dl (31.0-37.0); MEAN PLATELET VOLUME 9.9 fl (7.0-11.0); MONO # 0.4 (0.1-0.6); RBC 4.58 10^6/uL (3.5-6.1); RED CELL DISTRIBUTION WIDTH 12.9 % (11.5-14.5); WHITE BLOOD COUNT 4.8 10^3/ul (4.5-11.0)
[2018-01-21 05:17] LABS: ALB/GLOB RATIO 1.4 (1.1-1.8); ALBUMIN 4.1 g/dL (3.0-4.8); ALT/SGPT 40 U/L (7-56); AST/SGOT 23 U/L (14-36); BLOOD UREA NITROGEN 11 mg/dL (7-21); CALCIUM 9.7 mg/dL (8.4-10.5); GFR AFRICAN-AMERICAN > 60; GFR NON-AFRICAN AMERICAN > 60
[2018-01-21 05:27] LABS: INR 0.95 (0.93-1.08); PROTHROMBIN TIME 10.9 SECONDS (9.4-12.5)
[2018-01-21 06:10] LABS: URINE BILIRUBIN NEGATIVE (NEGATIVE); URINE BLOOD NEGATIVE (NEGATIVE); URINE GLUCOSE (UA) NEGATIVE (NEGATIVE); URINE LEUKOCYTE ESTERASE NEGATIVE Leu/uL (NEGATIVE); URINE PROTEIN NEGATIVE mg/dL (<30 mg/dL); URINE UROBILINOGEN 0.2 E.U./dL (<1 E.U./dL)
--- NOTE | 2018-01-21 06:14 | CT ---
EXAM: CT Head Without Intravenous Contrast CLINICAL HISTORY: 57 years old, female; Pain; Headache; Additional info: THOMAS TECHNIQUE: Axial computed tomography images of the head/brain without intravenous contrast. All CT scans at this facility use one or more dose reduction techniques, viz.: automated exposure control; ma/kV adjustment per patient size (including targeted exams where dose is matched to indication; i.e. head); or iterative reconstruction technique. Coronal and sagittal reformatted images were created and reviewed. COMPARISON: CT - HEAD W/O CONTRAST 2017-12-10 17:47 FINDINGS: Brain: No intracranial hemorrhage. No mass. No definite edema. Ventricles: No hydrocephalus. Bones/joints: No acute fracture. Soft tissues: Unremarkable. Sinuses: Scattered minimal mucosal thickening of ethmoid sinuses. Mastoid air cells: No mastoid effusion. Orbits: Unremarkable as visualized. IMPRESSION: 1. No definite acute intracranial abnormality. 2. Incidental/non-acute findings are described above.
[2018-01-21 06:18] LABS: HCG,QUALITATIVE URINE NEGATIVE (NEGATIVE); URINE APPEARANCE CLEAR (CLEAR); URINE COLOR YELLOW (YELLOW)
[2018-01-21 06:43] VITALS: BP 142/79; PULSE 86
== END 2018-01-21 06:42 | disposition home or self-care (01) ==
LOC: ED 04:06
DX: R51 Headache (principal); I10 Essential (primary) hypertension; G47.00 Insomnia, unspecified; K21.9 Gastro-esophageal reflux disease without esophagitis
CPT/HCPCS: 70450; 80053; 81003; 84703; 85025; 85610; 85730; 96374; 96375; 99285; J1200; J2765